=== PATIENT | female | born 1955 | race Caucasian/White ===

== ENCOUNTER → 2017-03-30 | Outpatient (CLI) | payer BC ==
--- NOTE | 2017-03-30 10:59 | USB ---
Addendum Report Previous report combined findings of both breasts, see correct findings. Right breast ultrasound includes all four quadrants, the retroareolar region and axilla. Finding demonstrates 0.1 x 0.1 x 0.1cm lesion too small to characterize at 4 o'clock and a 0.5 x 0.3 x 0.9cm cystic lesion at the nipple. Left breast ultrasound includes all four quadrants, the retroareolar region and axilla. Finding demonstrates a 1.4 x 0.2 x 1.0cm ductal lesion at 12 o'clock and a 2.3 x 0.2 x 0.7cm mixed, ductal lesion at 11 o'clock for which a biopsy is recommended. Reason for exam: clinical finding. History: Patient is postmenopausal. Excisional biopsy of the left breast, October 2006. Retro-pectoral saline implants in both breasts, 1999. Taking estrogen for 3 years beginning at age 50. Indicated problem(s): other indicated problem in both breasts. Physical Findings: Nurse Summary: occasional left pain a month ago, lasted 1 week, patient refuses to have mammogram "too painful" (nurse kp). US Breast BILAT Right breast ultrasound includes all four quadrants, the retroareolar region and axilla. Finding demonstrates 0.1 x 0.1 x 0.1cm lesion too small to characterize at 4 o'clock, a 0.5 x 0.3 x 0.9cm cystic lesion at the nipple, a 1.4 x 0.2 x 1.0cm ductal lesion at 12 o'clock and a 2.3 x 0.2 x 0.7cm mixed, ductal lesion at 11 o'clock for which a biopsy is recommended. These results were verbally communicated with the patient and result sheet given to the patient on 03/30/17. ASSESSMENT: Suspicious, BI-RAD 4 RECOMMENDATION: Ultrasound core biopsy of the left breast. Manage patient on a clinical basis. Called Dr. Grande with mammographic findings and has scheduled an appointment for the patient for 04/28/17 at 9:[address] Montero. PRELIMINARY REPORT CALLED AND FAXED TO DR. MONTERO ON 03/30/17 AT 300/TP. [facility]
== END | disposition home or self-care (01) ==
LOC: RADUSWWP 08:47
PROVIDERS: ATTEND Family Medicine
DX: Z12.39 Encounter for other screening for malignant neoplasm of breast (principal)

== ENCOUNTER → 2017-05-11 | Day surgery (SDC) | payer BC ==
--- NOTE | 2017-05-11 12:29 | MM ---
Reason for exam: additional evaluation requested from abnormal screening. Last mammogram was performed 6 years and 7 months ago. History: Patient is postmenopausal. Excisional biopsy of the left breast, October 2006. Retro-pectoral saline implants in both breasts, 1999. Taking estrogen for 3 years beginning at age 50. Physical Findings: Nurse Summary: 0.5-1cm nodule in the right breast at 11, 12 and 4 o'clock and a 1cm nodule in the left breast at 11 o'clock (nurse kp). MG Diag Mamm Implants MARKUS w CAD Bilateral CC, MLO, and ID view(s) were taken. Prior study comparison: September 27, 2010, bilateral diagnostic digital mammog. July 14, 2009, bilateral diagnostic digital mammog. The breast tissue is heterogeneously dense. This may lower the sensitivity of mammography. Finding: There are typically benign calcifications in both breasts. These results were verbally communicated with the patient and result sheet given to the patient on 05/11/17. ASSESSMENT: Incomplete: need additional imaging evaluation, BI-RAD 0 RECOMMENDATION: Ultrasound core biopsy of the left breast.
[2017-05-11 12:48] VITALS: RESP 16; BMI 29.2
[2017-05-11 13:22] VITALS: BP 111/68; PULSE 66; TEMP 98.2
--- NOTE | 2017-05-11 13:48 | USB ---
ULTRASOUND GUIDED FNA THYROID BIOPSY: CLINICAL HISTORY: Left breast 11:00 lesion requested for biopsy FINDINGS: The procedure was explained to the patient. The risks, complications, benefits and alternatives were discussed and any questions were answered. Informed consent was obtained. Patient was placed supin e on the ultrasound table and prepped and draped in the usual sterile fashion. Utilizing a 14 gauge needle, five passes were made into the requested left breast lesion. Clip placed post procedure whic h appeared in good position. Patient was stable throughout the procedure. Pathology is pending. All elements of maximal barrier and sterile technique were utilized. IMPRESSION: 1. Successful ultrasound guided core biopsy requested left breast lesion. Pathology pending.
== END ==
LOC: RADMAMWWP 10:33
PROVIDERS: ATTEND Surgery
DX: N60.32 Fibrosclerosis of left breast (principal); N60.42 Mammary duct ectasia of left breast; Z98.82 Breast implant status; R92.0 Mammographic microcalcification found on diagnostic imaging of breast; Z78.0 Asymptomatic menopausal state; Z79.899 Other long term (current) drug therapy
CPT/HCPCS: 88305; 19083; G0204; A4648

== ENCOUNTER → 2018-02-09 | Outpatient (CLI) | payer BC ==
--- NOTE | 2018-02-12 07:49 | MM ---
Reason for exam: follow-up at short interval from prior study. Last mammogram was performed 9 months ago. History: Patient is postmenopausal and has history of high-risk lesion on a previous biopsy at age 62. Family history of breast cancer in cousin. Lumpectomy of the left breast, June 14, 2017. High risk US breast needle core LT of the left breast, May 11, 2017. Excisional biopsy of the left breast, October 2006. Retro-pectoral saline implants in both breasts, 1999. Took estrogen for 7 years beginning at age 36. Physical Findings: A clinical breast exam by your physician is recommended on an annual basis and results should be correlated with mammographic findings. MG Diag Mamm Implants MARKUS w CAD Bilateral CC, MLO, and ID view(s) were taken. Prior study comparison: May 11, 2017, bilateral MG diag mamm implants MARKUS w CAD. September 27, 2010, bilateral diagnostic digital mammog. The breast tissue is heterogeneously dense. This may lower the sensitivity of mammography. Stable benign calcifications. Bilateral implants are intact. No significant new findings when compared with previous films. These results were verbally communicated with the patient and result sheet given to the patient on 02/09/18. ASSESSMENT: Benign, BI-RAD 2 RECOMMENDATION: Routine screening mammogram of both breasts in 1 year.
== END ==
LOC: RADMAMWWP 10:13
PROVIDERS: ATTEND Family Medicine
DX: R92.8 Other abnormal and inconclusive findings on diagnostic imaging of breast (principal)
CPT/HCPCS: 77066

== ENCOUNTER 2019-04-16 11:02 | Emergency (ER) | payer BC ==
--- NOTE | 2019-04-16 11:49 | XR ---
EXAMINATION TYPE: XR chest 2V DATE OF EXAM: 04/16/2019 COMPARISON: NONE HISTORY: Chest pain TECHNIQUE: Frontal and lateral views of the chest are obtained. FINDINGS: The patient is rotated, there are overlying cardiac leads. There is no focal air space opac ity, pleural effusion, or pneumothorax seen. The cardiac silhouette size is within normal limits. The osseous structures are intact. IMPRESSION: No acute cardiopulmonary process.
[2019-04-16 11:54] LABS: ALT 37 U/L (9-52); AST 27 U/L (14-36); Albumin 4.5 g/dL (3.5-5.0); Alkaline Phosphatase 70 U/L (38-126); Anion Gap 7 mmol/L; Blood Urea Nitrogen 13 mg/dL (7-17); Calcium 9.4 mg/dL (8.4-10.2); Carbon Dioxide 24 mmol/L (22-30); Chloride 109 mmol/L (98-107); Glucose 92 mg/dL (74-99); Lipase 87 U/L (23-300); Magnesium 2.1 mg/dL (1.6-2.3); Potassium 4.3 mmol/L (3.5-5.1); Sodium 140 mmol/L (137-145); Total Bilirubin 0.6 mg/dL (0.2-1.3); Total Protein 7.3 g/dL (6.3-8.2)
[2019-04-16 11:57] LABS: Basophils % (A) 0 %; Eosinophils # (A) 0.1 k/uL (0-0.7); Eosinophils % (A) 2 %; HGB 13.8 gm/dL (11.4-16.0); Lymphocytes # (A) 1.9 k/uL (1.0-4.8); Lymphocytes % (A) 35 %; MCH 30.1 pg (25.0-35.0); MCHC 32.8 g/dL (31.0-37.0); MCV 91.9 fL (80.0-100.0); Monocytes # (A) 0.5 k/uL (0-1.0); Monocytes % (A) 9 %; Neutrophils # (A) 2.7 k/uL (1.3-7.7); Neutrophils % (A) 51 %; Platelet Count 281 k/uL (150-450); RBC 4.57 m/uL (3.80-5.40); RDW 13.9 % (11.5-15.5); WBC 5.3 k/uL (3.8-10.6)
[2019-04-16 12:03] LABS: D-Dimer 0.42 mg/L FEU (<0.60); INR 0.9 (<1.2); Partial Thromboplastin Time 24.4 sec (22.0-30.0); Prothrombin Time 9.7 sec (9.0-12.0)
--- NOTE | 2019-04-16 12:36 | ED ---
Chest Pain HPI - General Chief Complaint: Chest Pain Stated Complaint: chest pain Time Seen by Provider: 04/16/19 11:14 Source: patient, RN notes reviewed, old records reviewed Mode of arrival: ambulatory Limitations: no limitations - History of Present Illness Initial Comments: This is a 64-year-old female the ER for evaluation. Presents today for sonya hernandez regards to chest pain right-sided chest pain right upper chest pain neck pain. No recent travel history or sick contacts. Patient states she has no modifying factors for pain pain is worse at night and throughout the day regarding symptoms times one week. No fevers no cough or congestion. No significant shortness of breath does feel anxious with the pain does present. MD Complaint: chest pain -: week(s) Onset: during rest, during exertion Pain Location: right chest Pain Radiation: RUE Severity: mild Severity scale (1-10): 2 Quality: aching Consistency: intermittent Improves With: nothing Worsens With: nothing Other Symptoms: cough Treatments Prior to Arrival: none - Related Data Home Medications Medication Instructions Recorded Confirmed Acetaminophen/Diphenhydramine 1 tab PO HS PRN 05/25/17 04/16/19 [Tylenol PM 500-25mg] [id number] 1 each PO Q6HR PRN 05/25/17 04/16/19 [Excedrin] [place] 650 mg PO HS 04/16/19 04/16/19 Aspirin 162.5 mg PO DAILY 04/16/19 04/16/19 Calcium Carbonate [Calcium] 1,200 mg PO HS 04/16/19 04/16/19 Cholecalciferol [Vitamin D3 (25 1,000 unit PO HS 04/16/19 04/16/19 Mcg = 1000 Iu)] Cider Vinegar [Apple Cider Vinegar] 300 mg PO DAILY 04/16/19 04/16/19 [place]-3 Fatty Acids [[place]-3] 2,000 mg PO HS 04/16/19 04/16/19 Papaya [Papaya Enzyme] 1 tab PO DAILY 04/16/19 04/16/19 Phytonadione [Vitamin K] 5 mg PO HS 04/16/19 04/16/19 Rosuvastatin [Crestor] 10 mg PO DAILY 04/16/19 04/16/19 Previous Rx's Medication Instructions Recorded Apixaban [Eliquis Starter Pack 0 mg PO DIRECTED 30 Days #1 pack 04/16/19 (for VTE)] Allergies Allergy/AdvReac Type Severity Reaction Status Date / Time lubiprostone [From Amitiza] Allergy Unknown Unknown Verified 04/16/19 11:30 Review of Systems ROS Statement: Those systems with pertinent positive or pertinent negative responses have been documented in the HPI. ROS Other: All systems not noted in ROS Statement are negative. EKG Findings - EKG Comments: EKG Findings:: EKG shows sinus rhythm rate of 67, IL 16, QRS 90, QTc 443 Past Medical History Past Medical History: GERD/Reflux, Hyperlipidemia, Osteoarthritis (OA), Seizure Disorder Additional Past Medical History / Comment(s): IBS, LAST SEIZURE AGE 3, VERY LOOSE STOOLS OFF AND ON History of Any Multi-Drug Resistant Organisms: None Reported Past Surgical History: Appendectomy, Bladder Surgery, Cholecystectomy, Hysterectomy, Orthopedic Surgery Additional Past Surgical History / Comment(s): BREAST IMPLANTS,MARKUS CATARACT SURGERY,BIOPSY LEFT BREAST,RECTOCELE REPAIR, Bladder susp. x 3, heel surgery Past Anesthesia/Blood Transfusion Reactions: Motion Sickness Past Psychological History: Depression Smoking Status: Never smoker Past Alcohol Use History: Occasional Past Drug Use History: None Reported - Past Family History Father Family Medical History: Cancer General Exam Limitations: no limitations General appearance: alert, in no apparent distress Head exam: Present: atraumatic, normocephalic, normal inspection Eye exam: Present: normal appearance, PERRL, EOMI. Absent: scleral icterus, conjunctival injection, periorbital swelling ENT exam: Present: normal exam, mucous membranes moist Neck exam: Present: normal inspection. Absent: tenderness, meningismus, lymphadenopathy Respiratory exam: Present: normal lung sounds bilaterally. Absent: respiratory distress, wheezes, rales, rhonchi, stridor Cardiovascular Exam: Present: regular rate, normal rhythm, normal heart sounds. Absent: systolic murmur, diastolic murmur, rubs, gallop, clicks GI/Abdominal exam: Present: soft, normal bowel sounds. Absent: distended, tenderness, guarding, rebound, rigid Extremities exam: Present: normal inspection, full ROM, normal capillary refill. Absent: tenderness, pedal edema, joint swelling, calf tenderness Back exam: Present: normal inspection Neurological exam: Present: alert, oriented X3, CN II-XII intact Psychiatric exam: Present: normal affect, normal mood Skin exam: Present: warm, dry, intact, normal color. Absent: rash Course Vital Signs 04/16/19 04/16/19 04/16/19 11:05 13:39 14:38 Temperature 97.8 F 97.8 F 98.3 F Pulse Rate 75 70 80 Respiratory 20 16 16 Rate Blood Pressure 138/83 114/76 106/64 O2 Sat by Pulse 98 97 94 L Oximetry - Reevaluation(s) Reevaluation #1: Medical records reviewed Spoke with patient, so with Dr. Morrow regarding admission or discharge. Patient deemed stable for discharge as she has normal vital signs normal pulse ox, normal troponin normal BNP Patient's in no acute distress Chest Pain MDM - MDM 64 female the ER for evaluation of right upper chest pain. Patient has no history of PE, pain times one week. Patient evaluated here in the ER. Patient's pain is controlled. Patient QRS for distress, able to ambulate without difficulty or shortness of breath. Patient place and anticoagulation can be discharged home Disposition Clinical Impression: Pulmonary embolism Disposition: HOME SELF-CARE Condition: Fair Instructions (If sedation given, give patient instructions): Pulmonary Embolism (ED) Prescriptions: Apixaban [Eliquis Starter Pack (for VTE)] 0 mg PO DIRECTED 30 Days #1 pack Is patient prescribed a controlled substance at d/c from ED?: No Referrals: Gucci Horton MD [Primary Care Provider] - 1-2 days
--- NOTE | 2019-04-16 13:00 | CT ---
EXAMINATION TYPE: CT angio chest DATE OF EXAM: 04/16/2019 12:35 PM COMPARISON: None HISTORY: Chest discomfort CT DLP: 330.7 mGycm Automated exposure control for dose reduction was used. CONTRAST: CTA scan of the thorax is performed with IV Contrast, patient injected with 100 mL of Isovue 300, pul monary embolism protocol. . FINDINGS: LUNGS: The lungs are grossly clear, there is no concerning parenchymal mass or nodule identified. T here is no pleural effusion or pneumothorax seen. The tracheobronchial tree is patent. MEDIASTINUM: There is central attenuation within upper lobe right pulmonary arterial branch. Main por tion of the pulmonary vasculature enhances normally., there is no CT evidence for pulmonary embolism. There are no greater than 1 cm hilar or mediastinal lymph nodes. No pericardial effusion is seen. Dense coronary artery calcification noted. OTHER: Postcholecystectomy changes. Previous breast implant surgery noted. IMPRESSION: 1. There is a filling defect within a right upper lobe secondary branch of the pulmonary artery. a sm all pulmonary embolism in this distribution is not excluded. Correlate clinically. 2. No consolidative pneumonia or pleural effusion.
[2019-04-16 13:42] VITALS: RESP 16
[2019-04-16] MEDS ORDERED: HEPARIN SODIUM,PORCINE 10,000 UNIT/ML 1 ML VIAL IV ONE (14:13)
[2019-04-16] MEDS ORDERED: NITROGLYCERIN SL TABS 0.4 MG TAB SUBLINGUAL PRN (14:13)
[2019-04-16] MEDS ORDERED: ASPIRIN 81 MG PO STA (14:13)
[2019-04-16] MEDS ORDERED: HEPARIN SODIUM,PORCINE 5,000 UNIT/ML 1 ML VIAL IV PRN (14:13)
[2019-04-16] MEDS ORDERED: HEPARIN SOD,PORK IN 0.45% NACL 25,000 UNIT in 0.45% NACL 1 250ML.BAG IV SCH (14:15)
[2019-04-16] MEDS ORDERED: APIXABAN 5 MG TAB PO STA (14:23)
[2019-04-16 14:41] VITALS: BP 106/64; PULSE 80; TEMP 98.3
[2019-04-17] MEDS ORDERED: ASPIRIN 325 MG TAB PO SCH (09:00)
== END 2019-04-16 14:54 | disposition home or self-care (01) ==
LOC: EC 11:02
DX: I26.99 Other pulmonary embolism without acute cor pulmonale (principal); M54.2 Cervicalgia; E78.5 Hyperlipidemia, unspecified; M19.90 Unspecified osteoarthritis, unspecified site; Z88.8 Allergy status to other drugs, medicaments and biological substances; Z79.82 Long term (current) use of aspirin; Z79.899 Other long term (current) drug therapy; Z53.8 Procedure and treatment not carried out for other reasons
CPT/HCPCS: 36415; 93005; 85379; 83880; 80053; 83690; 83735; 84484; 85025; 85610; 85730; 71046; 71275; 99285; Q9967

== ENCOUNTER → 2019-05-27 | Outpatient (CLI) | payer BC ==
--- NOTE | 2019-05-28 10:23 | MM ---
Reason for exam: screening (asymptomatic). Last mammogram was performed 1 year and 4 months ago. History: Patient is postmenopausal and has history of high-risk lesion on a previous biopsy at age 62. Family history of breast cancer in cousin. Lumpectomy of the left breast, June 14, 2017. High risk US breast needle core LT of the left breast, May 11, 2017. Excisional biopsy of the left breast, October 2006. Retro-pectoral saline implants in both breasts, 1999. Took estrogen for 7 years beginning at age 36. Physical Findings: A clinical breast exam by your physician is recommended on an annual basis and results should be correlated with mammographic findings. MG Screening Mammo Implant/CAD Bilateral CC, MLO, and ID view(s) were taken. Prior study comparison: February 09, 2018, bilateral MG diag mamm implants MARKUS w CAD. May 11, 2017, bilateral MG diag mamm implants MARKUS w CAD. The breast tissue is heterogeneously dense. This may lower the sensitivity of mammography. Benign appearing bilateral calcifications. ASSESSMENT: Benign, BI-RAD 2 RECOMMENDATION: Routine screening mammogram of both breasts in 1 year.
== END | disposition home or self-care (01) ==
LOC: RADMAMWWP 10:09
PROVIDERS: ATTEND Family Medicine
DX: Z12.31 Encounter for screening mammogram for malignant neoplasm of breast (principal)
CPT/HCPCS: 77067

== ENCOUNTER 2019-07-26 13:13 | Emergency (ER) | payer BC ==
[2019-07-26 13:22] VITALS: BP 117/65; PULSE 83; RESP 18; TEMP 97.9
[2019-07-26] MEDS ORDERED: DIPH,PERTUS(ACELL)TETVAC-LF 0.5 ML VIAL IM ONE (13:52)
[2019-07-26] MEDS ORDERED: LIDOCAINE 1% INJ 10MG/ML (20 ML MDV) SQ ONE (13:52)
--- NOTE | 2019-07-26 14:59 | ED ---
General Adult HPI - General Chief complaint: Skin/Abscess/Foreign Body Stated complaint: Sliver in neck Time Seen by Provider: 07/26/19 13:47 Source: patient, RN notes reviewed Mode of arrival: ambulatory - History of Present Illness Initial comments: 64-year-old female presents to the emergency department for a chief complaint of sliver in her neck. Patient was sleeping with a broom yesterday when it hit her neck and she got a sliver. States that she tried to go to urgent care to get it out but they would not take it out because she is on Eliquis. No redness. No drainage. No signs of infection.Patient has no other complaints at this time including shortness of breath, chest pain, abdominal pain, nausea or vomiting, headache, or visual changes. - Related Data Home Medications Medication Instructions Recorded Confirmed Acetaminophen/Diphenhydramine 1 tab PO HS PRN 05/25/17 04/16/19 [Tylenol PM 500-25mg] [id number] 1 each PO Q6HR PRN 05/25/17 04/16/19 [Excedrin] [place] 650 mg PO HS 04/16/19 04/16/19 Aspirin 162.5 mg PO DAILY 04/16/19 04/16/19 Calcium Carbonate [Calcium] 1,200 mg PO HS 04/16/19 04/16/19 Cholecalciferol [Vitamin D3 (25 1,000 unit PO HS 04/16/19 04/16/19 Mcg = 1000 Iu)] Cider Vinegar [Apple Cider Vinegar] 300 mg PO DAILY 04/16/19 04/16/19 [place]-3 Fatty Acids [[place]-3] 2,000 mg PO HS 04/16/19 04/16/19 Papaya [Papaya Enzyme] 1 tab PO DAILY 04/16/19 04/16/19 Phytonadione [Vitamin K] 5 mg PO HS 04/16/19 04/16/19 Rosuvastatin [Crestor] 10 mg PO DAILY 04/16/19 04/16/19 Previous Rx's Medication Instructions Recorded Apixaban [Eliquis Starter Pack 0 mg PO DIRECTED 30 Days #1 pack 04/16/19 (for VTE)] Allergies Allergy/AdvReac Type Severity Reaction Status Date / Time lubiprostone [From Amitiza] Allergy Unknown Unknown Verified 07/26/19 13:22 Review of Systems ROS Statement: Those systems with pertinent positive or pertinent negative responses have been documented in the HPI. ROS Other: All systems not noted in ROS Statement are negative. Past Medical History Past Medical History: GERD/Reflux, Hyperlipidemia, Osteoarthritis (OA), Pulmonary Embolus (PE), Seizure Disorder Additional Past Medical History / Comment(s): IBS, LAST SEIZURE AGE 3, VERY LOOSE STOOLS OFF AND ON History of Any Multi-Drug Resistant Organisms: None Reported Past Surgical History: Appendectomy, Bladder Surgery, Cholecystectomy, Hysterectomy, Orthopedic Surgery Additional Past Surgical History / Comment(s): BREAST IMPLANTS,MARKUS CATARACT SURGERY,BIOPSY LEFT BREAST,RECTOCELE REPAIR, Bladder susp. x 3, heel surgery Past Anesthesia/Blood Transfusion Reactions: Motion Sickness Past Psychological History: Depression Smoking Status: Never smoker Past Alcohol Use History: Occasional Past Drug Use History: None Reported - Past Family History Father Family Medical History: Cancer General Exam General appearance: alert, in no apparent distress Head exam: Present: atraumatic, normocephalic, normal inspection Eye exam: Present: normal appearance, PERRL, EOMI. Absent: scleral icterus, conjunctival injection, periorbital swelling ENT exam: Present: normal exam, mucous membranes moist Neck exam: Present: other (There is a small less than 0.5 cm thin sliver noted in the superficial right neck. No erythema or drainage consistent with infection.). Absent: normal inspection, tenderness, meningismus, lymphadenopathy Respiratory exam: Present: normal lung sounds bilaterally. Absent: respiratory distress, wheezes, rales, rhonchi, stridor Cardiovascular Exam: Present: regular rate, normal rhythm, normal heart sounds. Absent: systolic murmur, diastolic murmur, rubs, gallop, clicks Neurological exam: Present: alert Psychiatric exam: Present: normal affect, normal mood Course Vital Signs 07/26/19 13:19 Temperature 97.9 F Pulse Rate 83 Respiratory 18 Rate Blood Pressure 117/65 O2 Sat by Pulse 97 Oximetry Medical Decision Making - Medical Decision Making 64-year-old female presents to the emergency department for a chief complaint of superficial soft tissue foreign body. Patient was sleeping with a broom yesterday when she got a sliver in her neck. States she tried to go to urgent care but they would not remove this because she is on blood thinners. On exam there is a small superficial 0.5 cm wooden sliver noted. Tetanus updated. Area was cleansed. Lidocaine was used to anesthetize the area and 18-gauge needle was used to excise the sliver. No evidence of infection. At this time patient will not be given antibiotics but will monitor for infection. She will return here. Otherwise she'll follow up with primary care for recheck in one to 2 days. Disposition Clinical Impression: Superficial foreign body (splinter) Disposition: HOME SELF-CARE Condition: Good Instructions (If sedation given, give patient instructions): Soft Tissue Foreign Body (ED) Additional Instructions: Please keep the area clean. Monitor for signs of infection such as spreading or streaking redness, drainage, or fever and return if these occur. Otherwise follow-up with primary care in 1-2 days. Is patient prescribed a controlled substance at d/c from ED?: No Referrals: Gucci Horton MD [Primary Care Provider] - 1-2 days Time of Disposition: 14:58
== END 2019-07-26 15:07 | disposition home or self-care (01) ==
LOC: EC 13:13
DX: S10.95XA Superficial foreign body of unspecified part of neck, initial encounter (principal); Z23 Encounter for immunization; E78.5 Hyperlipidemia, unspecified; Z79.82 Long term (current) use of aspirin; Z79.899 Other long term (current) drug therapy; Z88.8 Allergy status to other drugs, medicaments and biological substances; Z86.711 Personal history of pulmonary embolism; W45.8XXA Other foreign body or object entering through skin, initial encounter
CPT/HCPCS: 90715; 99283; 10120; 90471; J2001

== ENCOUNTER → 2020-01-14 | Outpatient (CLI) | payer BC ==
[2020-01-14 12:30] LABS: Basophils % (A) 0 %; Eosinophils # (A) 0.1 k/uL (0-0.7); Eosinophils % (A) 1 %; HGB 14.2 gm/dL (11.4-16.0); Lymphocytes % (A) 29 %; MCH 29.8 pg (25.0-35.0); MCHC 31.5 g/dL (31.0-37.0); MCV 94.7 fL (80.0-100.0); Mean Platelet Volume 7.2; Monocytes # (A) 0.7 k/uL (0-1.0); Monocytes % (A) 10 %; Neutrophils # (A) 4.1 k/uL (1.3-7.7); Neutrophils % (A) 58 %; Platelet Count 269 k/uL (150-450); RBC 4.75 m/uL (3.80-5.40); RDW 12.8 % (11.5-15.5); WBC 7.1 k/uL (3.8-10.6)
[2020-01-14 16:47] LABS: African American GFR (CKD) 106.1 (60.0-200.0); Albumin 4.8 g/dL (3.80-4.90); Albumin/Globulin Ratio 2.53 (1.60-3.17); Anion Gap 8.8 mmol/L (4.00-12.00); BUN/Creat Ratio 21.43 Ratio (12.00-20.00); Calcium 9.4 mg/dL (8.7-10.3); Carbon Dioxide 26.2 mmol/L (21.6-31.8); Chol/HDL Ratio 2.67; Globulin 1.9 g/dL (1.6-3.3); LDL Cholesterol,Calculated 74.6 mg/dL (0.0-131.0); Non-African American GFR(CKD) 91.6 (60.0-200.0); Potassium 5.2 mmol/L (3.5-5.5); Total Bilirubin 0.6 mg/dL (0.3-1.2); Total Protein 6.7 g/dL (6.2-8.2); VLDL Calculation 25.4 mg/dL (5.00-40.00)
== END | disposition home or self-care (01) ==
LOC: LABWHC1 10:35
PROVIDERS: ATTEND Family Medicine
DX: Z00.01 Encounter for general adult medical examination with abnormal findings (principal); E78.5 Hyperlipidemia, unspecified; E55.9 Vitamin D deficiency, unspecified
CPT/HCPCS: 36415; 80053; 80061; 82306; 82607; 84443; 85025

== ENCOUNTER → 2020-06-01 | Outpatient (CLI) | payer MEDICARE ==
--- NOTE | 2020-06-03 13:27 | MM ---
Reason for exam: screening (asymptomatic). Last mammogram was performed 1 year ago. History: Patient is postmenopausal and has history of high-risk lesion on a previous biopsy at age 62. Family history of breast cancer in cousin. Lumpectomy of the left breast, June 14, 2017. High risk US breast needle core LT of the left breast, May 11, 2017. Excisional biopsy of the left breast, October 2006. Retro-pectoral saline implants in both breasts, 1999. Took estrogen for 7 years beginning at age 36. Physical Findings: A clinical breast exam by your physician is recommended on an annual basis and results should be correlated with mammographic findings. MG 3D Screen Mammo Imp/Cad Bilateral CC and MLO view(s) were taken. Prior study comparison: May 27, 2019, bilateral MG screening mammo implant/CAD. February 09, 2018, bilateral MG diag mamm implants MARKUS w CAD. The breast tissue is heterogeneously dense. This may lower the sensitivity of mammography. Bilateral breast prothesis. No significant changes when compared with prior studies. ASSESSMENT: Benign, BI-RAD 2 RECOMMENDATION: Routine screening mammogram of both breasts in 1 year.
== END | disposition home or self-care (01) ==
LOC: RADMAMWWP 10:44
PROVIDERS: ATTEND Family Medicine
DX: Z12.31 Encounter for screening mammogram for malignant neoplasm of breast (principal)
CPT/HCPCS: 77063; 77067

== ENCOUNTER 2021-03-07 19:12 | Emergency (ER) | payer MEDICARE ==
[2021-03-07] MEDS ORDERED: SODIUM CHLORIDE 0.9% 500 ML 500 ML IV STA (21:24)
--- NOTE | 2021-03-07 22:05 | ED ---
General Adult HPI - General Chief complaint: Recheck/Abnormal Lab/Rx Stated complaint: Covid exposure, weakness Time Seen by Provider: 03/07/21 21:24 Source: patient Mode of arrival: wheelchair Limitations: no limitations - History of Present Illness Initial comments: 65-year-old female patient presents to the emergency department today for evaluation after having an episode where she became very dizzy and weak. States she is also very diaphoretic at the time. States she had sweat dripping down her face. States that she continued to feel unwell slid decided to come and get checked out. States that the episode lasted for approximately 20 minutes and she started to feel better. States she still does have some residual generalized weakness. Denies any chest pain or shortness of breath with the episode. Denies any history of hypoglycemia. Denies any focal numbness, tingling, or weakness. Denies any recent fever or chills. She was concerned she may have COVID-19. Patient denies any recent rash, cough, abdominal pain, nausea, vomiting, diarrhea, constipation, back pain, hematuria, dysuria, urinary urgency, urinary frequency, headache, visual changes, or any other complaints. - Related Data Home Medications Medication Instructions Recorded Confirmed Acetaminophen/Diphenhydramine 1 tab PO HS PRN 05/25/17 04/16/19 [Tylenol PM 500-25mg] [id number] 1 each PO Q6HR PRN 05/25/17 04/16/19 [Excedrin] Calcium Carbonate [Calcium] 1,200 mg PO HS 04/16/19 04/16/19 Cholecalciferol [Vitamin D3 (25 1,000 unit PO HS 04/16/19 04/16/19 Mcg = 1000 Iu)] Cider Vinegar [Apple Cider Vinegar] 300 mg PO DAILY 04/16/19 04/16/19 [place]-3 Fatty Acids [[place]-3] 2,000 mg PO HS 04/16/19 04/16/19 Papaya [Papaya Enzyme] 1 tab PO DAILY 04/16/19 04/16/19 Phytonadione [Vitamin K] 5 mg PO HS 04/16/19 04/16/19 RX: Catron 650 mg PO HS 04/16/19 04/16/19 RX: Aspirin 162.5 mg PO DAILY 04/16/19 04/16/19 Rosuvastatin [Crestor] 10 mg PO DAILY 04/16/19 04/16/19 Previous Rx's Medication Instructions Recorded Apixaban [Eliquis Starter Pack 0 mg PO DIRECTED 30 Days #1 pack 04/16/19 (for VTE)] Fluconazole [Diflucan] 150 mg PO ONCE #2 tab 03/07/21 Nitrofurantoin Monohyd/M-Cryst 100 mg PO Q12HR #14 cap 03/07/21 [Macrobid] Allergies Allergy/AdvReac Type Severity Reaction Status Date / Time lubiprostone [From Amitiza] Allergy Unknown Unknown Verified 07/26/19 13:22 Review of Systems ROS Statement: Those systems with pertinent positive or pertinent negative responses have been documented in the HPI. ROS Other: All systems not noted in ROS Statement are negative. Past Medical History Past Medical History: CVA/TIA, GERD/Reflux, Hyperlipidemia, Osteoarthritis (OA), Pulmonary Embolus (PE), Seizure Disorder Additional Past Medical History / Comment(s): IBS, LAST SEIZURE AGE 3, VERY LOOSE STOOLS OFF AND ON History of Any Multi-Drug Resistant Organisms: None Reported Past Surgical History: Appendectomy, Bladder Surgery, Cholecystectomy, Hysterectomy, Orthopedic Surgery Additional Past Surgical History / Comment(s): BREAST IMPLANTS,MARKUS CATARACT SURGERY,BIOPSY LEFT BREAST,RECTOCELE REPAIR, Bladder susp. x 3, heel surgery Past Anesthesia/Blood Transfusion Reactions: Motion Sickness Past Psychological History: Depression Smoking Status: Never smoker Past Alcohol Use History: Occasional Past Drug Use History: None Reported - Past Family History Father Family Medical History: Cancer General Exam Limitations: no limitations General appearance: alert, in no apparent distress, other (Physical well- developed, well-nourished adult female patient in no acute distress. Vital signs upon presentation are temperature 97.5F, pulse 72, respirations 20, blood pressure 137/79, pulse ox 100% on room air.) Eye exam: Present: normal appearance, PERRL, EOMI. Absent: scleral icterus, conjunctival injection, periorbital swelling ENT exam: Present: normal exam, normal oropharynx, mucous membranes moist Respiratory exam: Present: normal lung sounds bilaterally. Absent: respiratory distress, wheezes, rales, rhonchi, stridor Cardiovascular Exam: Present: regular rate, normal rhythm, normal heart sounds. Absent: systolic murmur, diastolic murmur, rubs, gallop, clicks GI/Abdominal exam: Present: soft, normal bowel sounds. Absent: distended, tenderness, guarding, rebound, rigid Neurological exam: Present: alert, oriented X3, CN II-XII intact Psychiatric exam: Present: normal affect, normal mood Skin exam: Present: warm, dry, intact, normal color. Absent: rash Course Vital Signs 03/07/21 03/08/21 19:53 00:16 Temperature 97.5 F L 97.7 F Pulse Rate 72 69 Respiratory 20 18 Rate Blood Pressure 137/79 125/82 O2 Sat by Pulse 100 96 Oximetry EKG Findings - EKG Comments: EKG Findings:: EKG obtained at 2145 shows normal sinus rhythm with a ventricular rate of 66, OK 172, QR sikh 88, QT 436, QTc 457. No evidence of ST elevation or depression. Medical Decision Making - Medical Decision Making 65 old female patient percents to the emergency department today for evaluation after having an episode of dizziness, weakness, sweating. This lasted approximately 20 minutes. Symptoms resolved prior to arrival. Tested negative for COVID-19. Physical examination is unremarkable. She is neurologically intact and nonfocal deficits. Labs reviewed and were unremarkable. She did have evidence for urinary tract infection. Chest x-ray is negative. EKG is unremarkable. She'll be discharged with antibiotics for UTI. She states instructed to rest increase fluids. Instructed to follow-up with the primary care physician for recheck in 1-2 days. Return parameters discussed in detail. She verbalizes understanding and agrees with this plan. Case discussed with my attending Dr. Johnson. - Lab Data Result diagrams: 03/07/21 22:10 03/07/21 22:10 Lab Results 03/07/21 03/07/21 03/07/21 Range/Units 19:59 22:10 22:10 WBC 10.0 (3.8-10.6) k/uL RBC 4.48 (3.80-5.40) m/uL Hgb 14.1 (11.4-16.0) gm/dL Hct 40.9 (34.0-46.0) % MCV 91.4 (80.0-100.0) fL MCH 31.5 (25.0-35.0) pg MCHC 34.4 (31.0-37.0) g/dL RDW 12.8 (11.5-15.5) % Plt Count 266 (150-450) k/uL MPV 6.9 Neutrophils % 72 % Lymphocytes % 20 % Monocytes % 6 % Eosinophils % 1 % Basophils % 0 % Neutrophils # 7.1 (1.3-7.7) k/uL Lymphocytes # 2.0 (1.0-4.8) k/uL Monocytes # 0.6 (0-1.0) k/uL Eosinophils # 0.1 (0-0.7) k/uL Basophils # 0.0 (0-0.2) k/uL PT 9.7 (9.0-12.0) sec INR 0.9 (<1.2) APTT 22.8 (22.0-30.0) sec Sodium (137-145) mmol/L Potassium (3.5-5.1) mmol/L Chloride (98-107) mmol/L Carbon Dioxide (22-30) mmol/L Anion Gap mmol/L BUN (7-17) mg/dL Creatinine (0.52-1.04) mg/dL Est GFR (CKD-EPI)AfAm (>60 ml/min/1.73 sqM) Est GFR (CKD-EPI)NonAf (>60 ml/min/1.73 sqM) Glucose (74-99) mg/dL Plasma Lactic Acid Kike (0.7-2.0) mmol/L Calcium (8.4-10.2) mg/dL Total Bilirubin (0.2-1.3) mg/dL AST (14-36) U/L ALT (4-34) U/L Alkaline Phosphatase (38-126) U/L Troponin I (0.000-0.034) ng/mL Total Protein (6.3-8.2) g/dL Albumin (3.5-5.0) g/dL Urine Color Urine Appearance (Clear) Urine pH (5.0-8.0) Ur Specific [place] (1.001-1.035) Urine Protein (Negative) Urine Glucose (UA) (Negative) Urine Ketones (Negative) Urine Blood (Negative) Urine Nitrite (Negative) Urine Bilirubin (Negative) Urine Urobilinogen (<2.0) mg/dL Ur Leukocyte Esterase (Negative) Urine RBC (0-5) /hpf Urine WBC (0-5) /hpf Ur Squamous Epith Cells (0-4) /hpf Urine Bacteria (None) /hpf Hyaline Casts (0-2) /lpf Urine Mucus (None) /hpf Coronavirus (PCR) Not Detected (Not Detectd) 03/07/21 03/07/21 03/07/21 Range/Units 22:10 22:10 22:10 WBC (3.8-10.6) k/uL RBC (3.80-5.40) m/uL Hgb (11.4-16.0) gm/dL Hct (34.0-46.0) % MCV (80.0-100.0) fL MCH (25.0-35.0) pg MCHC (31.0-37.0) g/dL RDW (11.5-15.5) % Plt Count (150-450) k/uL MPV Neutrophils % % Lymphocytes % % Monocytes % % Eosinophils % % Basophils % % Neutrophils # (1.3-7.7) k/uL Lymphocytes # (1.0-4.8) k/uL Monocytes # (0-1.0) k/uL Eosinophils # (0-0.7) k/uL Basophils # (0-0.2) k/uL PT (9.0-12.0) sec INR (<1.2) APTT (22.0-30.0) sec Sodium 140 (137-145) mmol/L Potassium 4.3 (3.5-5.1) mmol/L Chloride 107 (98-107) mmol/L Carbon Dioxide 22 (22-30) mmol/L Anion Gap 11 mmol/L BUN 17 (7-17) mg/dL Creatinine 0.59 (0.52-1.04) mg/dL Est GFR (CKD-EPI)AfAm >90 (>60 ml/min/1.73 sqM) Est GFR (CKD-EPI)NonAf >90 (>60 ml/min/1.73 sqM) Glucose 99 (74-99) mg/dL Plasma Lactic Acid Kike 0.9 (0.7-2.0) mmol/L Calcium 9.2 (8.4-10.2) mg/dL Total Bilirubin 0.6 (0.2-1.3) mg/dL AST 32 (14-36) U/L ALT 36 H (4-34) U/L Alkaline Phosphatase 80 (38-126) U/L Troponin I <0.012 (0.000-0.034) ng/mL Total Protein 7.3 (6.3-8.2) g/dL Albumin 4.4 (3.5-5.0) g/dL Urine Color Urine Appearance (Clear) Urine pH (5.0-8.0) Ur Specific [place] (1.001-1.035) Urine Protein (Negative) Urine Glucose (UA) (Negative) Urine Ketones (Negative) Urine Blood (Negative) Urine Nitrite (Negative) Urine Bilirubin (Negative) Urine Urobilinogen (<2.0) mg/dL Ur Leukocyte Esterase (Negative) Urine RBC (0-5) /hpf Urine WBC (0-5) /hpf Ur Squamous Epith Cells (0-4) /hpf Urine Bacteria (None) /hpf Hyaline Casts (0-2) /lpf Urine Mucus (None) /hpf Coronavirus (PCR) (Not Detectd) 03/07/21 Range/Units 22:18 WBC (3.8-10.6) k/uL RBC (3.80-5.40) m/uL Hgb (11.4-16.0) gm/dL Hct (34.0-46.0) % MCV (80.0-100.0) fL MCH (25.0-35.0) pg MCHC (31.0-37.0) g/dL RDW (11.5-15.5) % Plt Count (150-450) k/uL MPV Neutrophils % % Lymphocytes % % Monocytes % % Eosinophils % % Basophils % % Neutrophils # (1.3-7.7) k/uL Lymphocytes # (1.0-4.8) k/uL Monocytes # (0-1.0) k/uL Eosinophils # (0-0.7) k/uL Basophils # (0-0.2) k/uL PT (9.0-12.0) sec INR (<1.2) APTT (22.0-30.0) sec Sodium (137-145) mmol/L Potassium (3.5-5.1) mmol/L Chloride (98-107) mmol/L Carbon Dioxide (22-30) mmol/L Anion Gap mmol/L BUN (7-17) mg/dL Creatinine (0.52-1.04) mg/dL Est GFR (CKD-EPI)AfAm (>60 ml/min/1.73 sqM) Est GFR (CKD-EPI)NonAf (>60 ml/min/1.73 sqM) Glucose (74-99) mg/dL Plasma Lactic Acid Kike (0.7-2.0) mmol/L Calcium (8.4-10.2) mg/dL Total Bilirubin (0.2-1.3) mg/dL AST (14-36) U/L ALT (4-34) U/L Alkaline Phosphatase (38-126) U/L Troponin I (0.000-0.034) ng/mL Total Protein (6.3-8.2) g/dL Albumin (3.5-5.0) g/dL Urine Color Yellow Urine Appearance Cloudy H (Clear) Urine pH 5.5 (5.0-8.0) Ur Specific [place] 1.020 (1.001-1.035) Urine Protein Negative (Negative) Urine Glucose (UA) Negative (Negative) Urine Ketones 1+ H (Negative) Urine Blood Negative (Negative) Urine Nitrite Negative (Negative) Urine Bilirubin Negative (Negative) Urine Urobilinogen <2.0 (<2.0) mg/dL Ur Leukocyte Esterase Moderate H (Negative) Urine RBC 1 (0-5) /hpf Urine WBC 36 H (0-5) /hpf Ur Squamous Epith Cells 1 (0-4) /hpf Urine Bacteria Many H (None) /hpf Hyaline Casts 1 (0-2) /lpf Urine Mucus Occasional H (None) /hpf Coronavirus (PCR) (Not Detectd) - EKG Data -: EKG Interpreted by Me EKG Comments: EKG obtained at 2145 shows sinus rhythm with a ventricular rate of 66, OK interval 172, QRS duration 88, QT 436, QTc 457. No evidence of ST elevation or depression. - Radiology Data Radiology results: report reviewed, image reviewed Two-view x-ray of the chest is obtained. Report reviewed in its entirety. Impression by Dr. Anderson shows no acute cardiopulmonary abnormality. Disposition Clinical Impression: Urinary tract infection, Weakness Disposition: HOME SELF-CARE Condition: Good Instructions (If sedation given, give patient instructions): Urinary Tract Infection in Women (ED), Weakness (ED) Additional Instructions: Increase fluids. Complete antibiotic prescription and full. Follow-up the primary care physician for recheck in 1-2 days. Return to the emergency department for any new, worsening, or concerning symptoms Prescriptions: Fluconazole [Diflucan] 150 mg PO ONCE #2 tab Nitrofurantoin Monohyd/M-Cryst [Macrobid] 100 mg PO Q12HR #14 cap Is patient prescribed a controlled substance at d/c from ED?: No Referrals: Gucci Hortno MD [Primary Care Provider] - 1-2 days Time of Disposition: 23:38
--- NOTE | 2021-03-07 22:11 | XR ---
EXAMINATION TYPE: XR chest 2V DATE OF EXAM: 03/07/2021 COMPARISON: CT 04/16/2019. HISTORY: Weakness. TECHNIQUE: Frontal and lateral views of the chest are obtained. FINDINGS: There is mild bibasilar hazy opacities, compatible with atelectasis. No significant infilt rate, pleural effusion, or pneumothorax seen. The cardiac silhouette size is within normal limits. The osseous structures are intact. Overlying loop recorder is seen. IMPRESSION: No acute cardiopulmonary abnormality.
[2021-03-07 22:23] LABS: Basophils % (A) 0 %; Eosinophils # (A) 0.1 k/uL (0-0.7); Eosinophils % (A) 1 %; HCT 40.9 % (34.0-46.0); HGB 14.1 gm/dL (11.4-16.0); Lymphocytes % (A) 20 %; MCH 31.5 pg (25.0-35.0); MCHC 34.4 g/dL (31.0-37.0); MCV 91.4 fL (80.0-100.0); Mean Platelet Volume 6.9; Monocytes # (A) 0.6 k/uL (0-1.0); Monocytes % (A) 6 %; Neutrophils # (A) 7.1 k/uL (1.3-7.7); Neutrophils % (A) 72 %; Platelet Count 266 k/uL (150-450); RBC 4.48 m/uL (3.80-5.40); RDW 12.8 % (11.5-15.5)
[2021-03-07 22:32] LABS: INR 0.9 (<1.2); Partial Thromboplastin Time 22.8 sec (22.0-30.0); Prothrombin Time 9.7 sec (9.0-12.0)
[2021-03-07 22:42] LABS: ALT 36 U/L (4-34); AST 32 U/L (14-36); African American GFR (CKD) >90 (>60 ml/min/1.73 sqM); Albumin 4.4 g/dL (3.5-5.0); Alkaline Phosphatase 80 U/L (38-126); Anion Gap 11 mmol/L; Blood Urea Nitrogen 17 mg/dL (7-17); Calcium 9.2 mg/dL (8.4-10.2); Carbon Dioxide 22 mmol/L (22-30); Chloride 107 mmol/L (98-107); Glucose 99 mg/dL (74-99); Non-African American GFR(CKD) >90 (>60 ml/min/1.73 sqM); Potassium 4.3 mmol/L (3.5-5.1); Sodium 140 mmol/L (137-145); Total Bilirubin 0.6 mg/dL (0.2-1.3); Total Protein 7.3 g/dL (6.3-8.2)
[2021-03-07 22:48] LABS: Appearance,Urine Cloudy (Clear); Bacteria,Urine Many /hpf; Bilirubin,Urine Negative (Negative); Blood,Urine Negative (Negative); Color,Urine Yellow; Glucose,Urine (UA) Negative (Negative); Hyaline Casts,Urine 1 /lpf (0-2); Ketones,Urine 1+ (Negative); Leukocyte Esterase,Urine Moderate (Negative); Mucus,Urine Occasional /hpf; Nitrite,Urine Negative (Negative); PH, Urine 5.5 (5.0-8.0); Protein,Urine Negative (Negative); RBC,Urine 1 /hpf (0-5); Squamous Epithelial Cell,Urine 1 /hpf (0-4); Urobilinogen,Urine <2.0 mg/dL (<2.0); WBC,Urine 36 /hpf (0-5)
[2021-03-07] MEDS ORDERED: cefTRIAXone IN SWFI 1,000 MG/10 ML SYRINGE IVP STA (23:22)
[2021-03-08 00:17] VITALS: BP 125/82; PULSE 69; RESP 18; TEMP 97.7
== END 2021-03-08 00:17 | disposition home or self-care (01) ==
LOC: EC 19:12 → SUPCPDRO 19:12 → EC 03-08 00:17
DX: N39.0 Urinary tract infection, site not specified (principal); R53.1 Weakness; E78.5 Hyperlipidemia, unspecified; K21.9 Gastro-esophageal reflux disease without esophagitis; M19.90 Unspecified osteoarthritis, unspecified site; Z20.822 Contact with and (suspected) exposure to COVID-19; F32.9 Major depressive disorder, single episode, unspecified; Z86.73 Personal history of transient ischemic attack (TIA), and cerebral infarction without residual deficits; Z86.711 Personal history of pulmonary embolism; Z79.82 Long term (current) use of aspirin
CPT/HCPCS: 36415; 80053; 83605; 84484; 85025; 85610; 85730; 81001; 87086; 87635; 71046; 99285; 96374; 96361; J0696; 87077; 87186; 93005

== ENCOUNTER → 2021-09-21 | Outpatient (CLI) | payer MEDICARE ==
--- NOTE | 2021-09-22 16:13 | BD ---
EXAMINATION TYPE: Axial Bone Density DATE OF EXAM: 09/21/2021 COMPARISON: NONE CLINICAL HISTORY: Height: 5 FT 3 IN Weight: 172 FRAX RISK QUESTIONS: Alcohol (3 or more units per day): NO Family History (Parent hip fracture): NO Glucocorticoids (More than 3mos): NO (Ex: prednisone, prednisolone, methylprednisolone, dexamethasone, and hydrocortisone). History of Fracture in Adulthood: YES Secondary Osteoporosis: 1. Type 1 Diabetes: NO 2. Hyperthyroidism: NO 3. Menopause before 45: PART AGE 36 4. Malnutrition: NO 5. Chronic liver disease: NO Rheumatoid Arthritis: NO Current Tobacco Use: NO RISK FACTORS HISTORY OF: Surgery to Spine/Hip(right/left)/Wrist (right/left): NO Family History of Osteoporosis: YES Active: YES Diet low in dairy products/other sources of calcium: NO Postmenopausal woman: PART AGE 36 Take estrogen and/or progesterone medications: TOOK HRT UNSURE FOR HOW LONG Lost more than 2 inches in height since high school: NO MEDICATIONS: Additional Medications: ROSUVASTATIN, ASPIRIN Additional History: EXAM MEASUREMENTS: Bone mineral densitometry was performed using the [employer] System. Bone mineral density as measured about the Lumbar spine is: ----- L1-L4(G/cm2): 1.141 T Score Values are as follows: ----- L2: 0.4 ----- L3: -0.7 ----- L4: 0.2 ----- L1-L4: -0.3 Bone mineral density has: INCREASED 9.9 % since study of: 2008 Bone mineral density about the R hip (g/cm2): 0.933 Bone mineral density about the L hip (g/cm2): 0.877 T Score values are as follows: -----R Neck: -0.8 -----L Neck: -1.2 -----R Total: -0.8 -----L Total: -1.2 Bone mineral density has: INCREASED 4.6 % since study of: 2008 IMPRESSION: Normal (Values between +1 and -1 indicate normal bone mass). Consider repeating this study in 5 year s or sooner if there is some new clinical indication. NOTE: T-SCORE=SD OF THE YOUNG ADULT MEAN.
--- NOTE | 2021-09-23 10:27 | MM ---
Reason for exam: screening (asymptomatic). Last mammogram was performed 1 year and 4 months ago. History: Patient is postmenopausal and has history of high-risk lesion on a previous biopsy at age 62. Family history of breast cancer in cousin. Lumpectomy of the left breast, June 14, 2017. High risk US breast needle core LT of the left breast, May 11, 2017. Excisional biopsy of the left breast, October 2006. Retro-pectoral saline implants in both breasts, 1999. Took estrogen for 7 years beginning at age 36. Physical Findings: A clinical breast exam by your physician is recommended on an annual basis and results should be correlated with mammographic findings. MG 3D Screen Mammo Imp/Cad Bilateral CC, MLO, and ID view(s) were taken. Prior study comparison: June 01, 2020, bilateral MG 3d screen mammo imp/cad. May 27, 2019, bilateral MG screening mammo implant/CAD. There are scattered fibroglandular densities. Bilateral breast prothesis. No significant changes when compared with prior studies. ASSESSMENT: Benign, BI-RAD 2 RECOMMENDATION: Routine screening mammogram of both breasts in 1 year.
== END | disposition home or self-care (01) ==
LOC: RADMAMWWP 14:53
PROVIDERS: ATTEND Family Medicine
DX: Z12.31 Encounter for screening mammogram for malignant neoplasm of breast (principal); Z78.0 Asymptomatic menopausal state
CPT/HCPCS: 77063; 77067; 77080

== ENCOUNTER → 2022-05-23 | Outpatient (CLI) | payer MEDICARE ==
--- NOTE | 2022-05-23 15:51 | NM ---
EXAMINATION TYPE: NM pul vent and perfuse DATE OF EXAM: 05/23/2022 COMPARISON: NONE HISTORY: Pulmonary embolism TECHNIQUE: Utilizing inhalation of 30.2 mCi Tc 99m DTPA aerosol and intravenous injection of 5.2 mCi of Tc 99m MAA, ventilation and perfusion images are acquired post injection in multiple projections. FINDINGS: No moderate or large defects or within the perfusion portion study. No mismatch defects are evident. IMPRESSION: Low probability for pulmonary embolism.
== END | disposition home or self-care (01) ==
LOC: RADNMMAIN 12:58
PROVIDERS: ATTEND Internal Medicine Cardiovascular Disease
DX: I26.99 Other pulmonary embolism without acute cor pulmonale (principal)
CPT/HCPCS: 78582; A9540; A9567

== ENCOUNTER 2022-10-06 09:58 | Inpatient (IN) | payer MEDICARE ==
[2022-10-06] MEDS ORDERED: SODIUM CHLORIDE 0.9% 1,000 ML IV STA (10:44)
[2022-10-06] MEDS ORDERED: ONDANSETRON 4 MG/2 ML VIAL IVP STA (10:47)
--- NOTE | 2022-10-06 11:07 | ED ---
Nausea/Vomiting/Diarrhea HPI - General Chief complaint: Nausea/Vomiting/Diarrhea Stated complaint: COVID+,Diarrhea,Syncope Time Seen by Provider: 10/06/22 10:28 Source: patient Mode of arrival: ambulatory Limitations: no limitations - History of Present Illness Initial comments: Patient is a 67-year-old female who presents to the emergency department with a chief complaint of covid symptoms. Patient states she took and at home test on Monday which was positive. Reports fatigue, dry cough, diarrhea, nausea.. Reports 10-20 episodes of diarrhea a day, nonbloody. Denies recent travel and antibiotic use. Patient states she was on the toilet today when she had a syncopal episode. She woke up on the bathroom floor. Unknown head trauma. Denies headache. Denies blood thinner use. She denies history of syncope and arrhythmia. Does admit to history of seizures when she was very young. Patient denies blurred vision, double vision, chest pain, shortness of breath, abdominal pain, vomiting, fever, chills. Denies history of COPD and asthma. - Related Data Home Medications Medication Instructions Recorded Confirmed Acetaminophen/Diphenhydramine 1 tab PO HS PRN 05/25/17 04/16/19 [Tylenol PM 500-25mg] [id number] 1 each PO Q6HR PRN 05/25/17 04/16/19 [Excedrin] Will 650 mg PO HS 04/16/19 04/16/19 Aspirin 162.5 mg PO DAILY 04/16/19 04/16/19 Calcium Carbonate [Calcium] 1,200 mg PO HS 04/16/19 04/16/19 Cholecalciferol [Vitamin D3 (25 1,000 unit PO HS 04/16/19 04/16/19 Mcg = 1000 Iu)] Cider Vinegar [Apple Cider Vinegar] 300 mg PO DAILY 04/16/19 04/16/19 Mutual-3 Fatty Acids [Mutual-3] 2,000 mg PO HS 04/16/19 04/16/19 Papaya [Papaya Enzyme] 1 tab PO DAILY 04/16/19 04/16/19 Phytonadione [Vitamin K] 5 mg PO HS 04/16/19 04/16/19 Rosuvastatin [Crestor] 10 mg PO DAILY 04/16/19 04/16/19 Previous Rx's Medication Instructions Recorded Apixaban [Eliquis Starter Pack 0 mg PO DIRECTED 30 Days #1 pack 04/16/19 (for VTE)] Fluconazole [Diflucan] 150 mg PO ONCE #2 tab 03/07/21 Nitrofurantoin Monohyd/M-Cryst 100 mg PO Q12HR #14 cap 03/07/21 [Macrobid] Allergies Allergy/AdvReac Type Severity Reaction Status Date / Time lubiprostone [From Amitiza] Allergy Unknown Unknown Verified 07/26/19 13:22 Review of Systems ROS Statement: Those systems with pertinent positive or pertinent negative responses have been documented in the HPI. ROS Other: All systems not noted in ROS Statement are negative. Past Medical History Past Medical History: CVA/TIA, GERD/Reflux, Hyperlipidemia, Osteoarthritis (OA), Pulmonary Embolus (PE), Seizure Disorder Additional Past Medical History / Comment(s): IBS, LAST SEIZURE AGE 3, VERY LOOSE STOOLS OFF AND ON History of Any Multi-Drug Resistant Organisms: None Reported Past Surgical History: Appendectomy, Bladder Surgery, Cholecystectomy, Hysterectomy, Orthopedic Surgery Additional Past Surgical History / Comment(s): BREAST IMPLANTS,MARKUS CATARACT SURGERY,BIOPSY LEFT BREAST,RECTOCELE REPAIR, Bladder susp. x 3, heel surgery Past Anesthesia/Blood Transfusion Reactions: Motion Sickness Past Psychological History: Depression Smoking Status: Never smoker Past Alcohol Use History: Occasional Past Drug Use History: None Reported - Past Family History Father Family Medical History: Cancer General Exam Limitations: no limitations General appearance: alert, in no apparent distress Head exam: Present: atraumatic, normocephalic, normal inspection Eye exam: Present: normal appearance, PERRL, EOMI. Absent: scleral icterus, conjunctival injection, periorbital swelling ENT exam: Present: mucous membranes dry Respiratory exam: Present: normal lung sounds bilaterally. Absent: respiratory distress, wheezes, rales, rhonchi, stridor Cardiovascular Exam: Present: regular rate, normal rhythm, normal heart sounds. Absent: systolic murmur, diastolic murmur, rubs, gallop, clicks GI/Abdominal exam: Present: soft, normal bowel sounds. Absent: distended, tenderness, guarding, rebound, rigid Neurological exam: Present: alert, oriented X3, CN II-XII intact Psychiatric exam: Present: normal affect, normal mood Skin exam: Present: warm, dry, intact, normal color. Absent: rash Course Vital Signs 10/06/22 10/06/22 10/06/22 10:19 11:50 13:08 Temperature 97.8 F Pulse Rate 63 90 77 Respiratory 24 18 18 Rate Blood Pressure 81/63 93/68 106/69 O2 Sat by Pulse 100 97 Oximetry 10/06/22 13:42 Temperature Pulse Rate 83 Respiratory 18 Rate Blood Pressure 105/67 O2 Sat by Pulse 97 Oximetry Medical Decision Making - Medical Decision Making This is a 67-year-old female presenting with diarrhea and syncopal episode. Blood pressure 81/63, significantly decreased from patient's baseline. Mucous membranes dry. Afebrile. Laboratory studies obtained and significant for LUCY, creatinine at 1.94. COVID- 19 is detected. Patient given large fluid bolus. Blood pressure improved to 105/67. EKG obtained and interpreted by me which shows sinus rhythm without evidence of ST or T segment changes. Chest x-ray obtained and interpreted by me which is negative for acute process. CT of the head and C-spine obtain interpreted by me which is negative for bleed, fracture, or other acute process. Case discussed with patient. Syncope likely related to volume depletion. Patient not feeling well, is very dehydrated, will benefit from IV fluids. Patient will be admitted. Case discussed with Dr. Wade who accepts admission. Dr. Benito is my attending. - Lab Data Result diagrams: 10/06/22 11:50 10/06/22 11:50 Lab Results 10/06/22 10/06/22 10/06/22 Range/Units 11:50 11:50 11:50 WBC 5.6 (3.8-10.6) k/uL RBC 5.57 H (3.80-5.40) m/uL Hgb 17.4 H (11.4-16.0) gm/dL Hct 51.0 H (34.0-46.0) % MCV 91.6 (80.0-100.0) fL MCH 31.2 (25.0-35.0) pg MCHC 34.0 (31.0-37.0) g/dL RDW 12.4 (11.5-15.5) % Plt Count 189 (150-450) k/uL MPV 7.8 Neutrophils % 73 % Lymphocytes % 14 % Monocytes % 9 % Eosinophils % 1 % Basophils % 3 % Neutrophils # 4.1 (1.3-7.7) k/uL Lymphocytes # 0.8 L (1.0-4.8) k/uL Monocytes # 0.5 (0-1.0) k/uL Eosinophils # 0.0 (0-0.7) k/uL Basophils # 0.2 (0-0.2) k/uL Sodium 140 (137-145) mmol/L Potassium 4.2 (3.5-5.1) mmol/L Chloride 100 (98-107) mmol/L Carbon Dioxide 24 (22-30) mmol/L Anion Gap 16 mmol/L BUN 22 H (7-17) mg/dL Creatinine 1.94 H (0.52-1.04) mg/dL Est GFR (CKD-EPI)AfAm 30 (>60 ml/min/1.73 sqM) Est GFR (CKD-EPI)NonAf 26 (>60 ml/min/1.73 sqM) Glucose 118 H (74-99) mg/dL Calcium 10.0 (8.4-10.2) mg/dL Magnesium 2.1 (1.6-2.3) mg/dL Total Bilirubin 0.4 (0.2-1.3) mg/dL AST 50 H (14-36) U/L ALT 41 H (4-34) U/L Alkaline Phosphatase 94 (38-126) U/L Total Protein 8.3 H (6.3-8.2) g/dL Albumin 5.3 H (3.5-5.0) g/dL Lipase 148 (23-300) U/L Coronavirus (PCR) Detected A (Not Detectd) Influenza Type A RNA (Not Detectd) Influenza Type B (PCR) (Not Detectd) 10/06/22 Range/Units 11:50 WBC (3.8-10.6) k/uL RBC (3.80-5.40) m/uL Hgb (11.4-16.0) gm/dL Hct (34.0-46.0) % MCV (80.0-100.0) fL MCH (25.0-35.0) pg MCHC (31.0-37.0) g/dL RDW (11.5-15.5) % Plt Count (150-450) k/uL MPV Neutrophils % % Lymphocytes % % Monocytes % % Eosinophils % % Basophils % % Neutrophils # (1.3-7.7) k/uL Lymphocytes # (1.0-4.8) k/uL Monocytes # (0-1.0) k/uL Eosinophils # (0-0.7) k/uL Basophils # (0-0.2) k/uL Sodium (137-145) mmol/L Potassium (3.5-5.1) mmol/L Chloride (98-107) mmol/L Carbon Dioxide (22-30) mmol/L Anion Gap mmol/L BUN (7-17) mg/dL Creatinine (0.52-1.04) mg/dL Est GFR (CKD-EPI)AfAm (>60 ml/min/1.73 sqM) Est GFR (CKD-EPI)NonAf (>60 ml/min/1.73 sqM) Glucose (74-99) mg/dL Calcium (8.4-10.2) mg/dL Magnesium (1.6-2.3) mg/dL Total Bilirubin (0.2-1.3) mg/dL AST (14-36) U/L ALT (4-34) U/L Alkaline Phosphatase (38-126) U/L Total Protein (6.3-8.2) g/dL Albumin (3.5-5.0) g/dL Lipase (23-300) U/L Coronavirus (PCR) (Not Detectd) Influenza Type A RNA Not Detected (Not Detectd) Influenza Type B (PCR) Not Detected (Not Detectd) - EKG Data EKG Comments: EKG taken at 11:38, interpreted by me Sinus rhythm, no ST segment or T-wave changes ventricular rate 84 HI interval 155 QRS duration 93 QTc 440 Disposition Clinical Impression: Syncope, COVID-19, LUCY (acute kidney injury), Dehydration, Diarrhea Disposition: ADMITTED IP TO THIS HOSP Condition: Good
[2022-10-06 12:03] LABS: Basophils # (A) 0.2 k/uL (0-0.2); Basophils % (A) 3 %; Eosinophils % (A) 1 %; HGB 17.4 gm/dL (11.4-16.0); Lymphocytes # (A) 0.8 k/uL (1.0-4.8); Lymphocytes % (A) 14 %; MCH 31.2 pg (25.0-35.0); MCV 91.6 fL (80.0-100.0); Mean Platelet Volume 7.8; Monocytes # (A) 0.5 k/uL (0-1.0); Monocytes % (A) 9 %; Neutrophils # (A) 4.1 k/uL (1.3-7.7); Neutrophils % (A) 73 %; Platelet Count 189 k/uL (150-450); RBC 5.57 m/uL (3.80-5.40); RDW 12.4 % (11.5-15.5); WBC 5.6 k/uL (3.8-10.6)
[2022-10-06 12:13] LABS: Albumin 5.3 g/dL (3.5-5.0); Magnesium 2.1 mg/dL (1.6-2.3); Potassium 4.2 mmol/L (3.5-5.1); Total Bilirubin 0.4 mg/dL (0.2-1.3); Total Protein 8.3 g/dL (6.3-8.2)
--- NOTE | 2022-10-06 12:31 | XR ---
EXAMINATION TYPE: XR chest 2V DATE OF EXAM: 10/06/2022 COMPARISON: 03/07/2021 INDICATION: Syncope TECHNIQUE: Frontal and lateral views of the chest are obtained. FINDINGS: The heart size is normal. The pulmonary vasculature is normal. The lungs are clear. Loop recorder is over the chest. IMPRESSION: 1. No acute pulmonary process.
--- NOTE | 2022-10-06 12:41 | CT ---
EXAMINATION TYPE: CT brain cspine wo con CT DLP: 1293.4 mGycm, Automated exposure control for dose reduction was used. DATE OF EXAM: 10/06/2022 12:27 PM COMPARISON: None.. CLINICAL INDICATION:Female, 67 years old with history of syncope with fall; Fall, pain TECHNIQUE: Brain: Multiple axial CT images of the brain were obtained without IV contrast. Cspine: Axial CT images from the skull base to the inferior aspect of T2 we obtained without intraven ous contrast. Coronal and sagittal reformatted images were also reviewed. FINDINGS: Brain: Extra-axial spaces: No abnormal extra-axial fluid collections. Ventricular system: Within normal limits Cerebral parenchyma: No acute intraparenchymal hemorrhage or mass effect. The green-white junction is well differentiated. Cerebellum: Unremarkable. Mass effect: No evidence of midline shift. Intracranial vasculature: Atherosclerotic calcifications of the intracranial vessels. Soft tissues: Normal. Calvarium/osseous structures: No depressed skull fracture. Paranasal sinuses and mastoid air cells: Clear. Visualized orbits: Bilateral aphakia Cervical spine: Fracture: None. Osseous structures: Multilevel degenerative disc disease changes with endplate spurring and disc oste ophyte complex's. Multilevel facet arthropathy. Vertebral alignment: Straightening of the cervical spine which may be due to patient position versus muscle spasm. Spinal canal/Neural Foramina: Disc osteophyte complexes at C3-C4, C4-C5, C5-C6, and C6-T1 with at sameer st mild spinal canal stenosis. Facet joint uncovertebral joint arthropathy scattered throughout the c ervical spine with varying degrees of neural foraminal stenosis. Neck soft tissues: Prevertebral soft tissues are within normal limits. Other: The airway is patent. Biapical scarring. IMPRESSION: 1. No acute intracranial process. 2. No evidence of cervical spine fracture. 3. Mild multilevel degenerative disc disease.
[2022-10-06] MEDS ORDERED: NALOXONE 0.4 MG/ML 1 ML VIAL IV PRN (13:41)
[2022-10-06] MEDS: SODIUM CHLORIDE 0.9% 1,000 ML IV SCH ×2 (14:33→22:57)
--- NOTE | 2022-10-06 15:07 | P.HPIM ---
History of Present Illness H&P Date: 10/06/22 Chief Complaint: fall Patient is a 67-year-old female with history of dyslipidemia, mood disorder, and remote DVT not on anticoagulation presented after syncope and fall. Patient claims that she had recent COVID-19 exposure from her daughter. She contracted COVID-19 herself on Monday. Since then, she has been experiencing fevers, chills, diarrhea. She denies any cough or shortness of breath, or chest pain. She denies any nausea, vomiting. However, each time she eats or drinks, she has diarrhea. She denies any recent urinary changes. She denies any travel history. Her fever subsided after 2 days, but diarrhea has persisted. This morning, when she was going to the bathroom, she had an episode of syncope and fall. She claims that she found herself on the floor. She is unsure whether she injured any part of her body. However, she denies any significant muscle or body aches. She has not noticed any bruising there. She denies any palpi tations or lightheadedness prior to her syncope. In the ED, her initial vitals were 81/63, afebrile, pulse rate 63, respiratory rate 23. Her lab work was significant for creatinine of 1.94, positive for COVID-19. She was given 1 L in the ED, with improvement in her blood pressure. CT head and spine was negative for any fractures. EKG showed normal sinus rhythm. Patient seen and examined at bedside. Pertinent positives and negatives as discussed in HPI, a complete review of systems was performed and all other systems are negative. Vital signs reviewed General: nontoxic, no distress, appears at stated age Derm: warm, dry Head: atraumatic, normocephalic, symmetric Eyes: EOMI, no lid lag, anicteric sclera, pupils equal round reactive to light ENT: Nose and ears atraumatic Neck: No thyromegaly, supple Mouth: no lip lesion, dry membranes moist Cardiovascular: S1S2 reg, no murmur, no edema Lungs: clear to auscultation bilateral, no rhonchi, no rales, no wheeze, no accessory muscle use Abdominal: soft, nontender to palpation, no guarding, no appreciable organomegaly Ext: no gross muscle atrophy, muscle strength muscle strength 5 out of 5 in all 4 extremities, no contractures Neuro: CN II-XII grossly intact Psych: Alert, oriented, appropriate affect Assessment/Plan: Acute symptomatic COVID-19 infection Viral gastroenteritis Syncope and fall Hypotension Dehydration Acute kidney injury -Continue IV fluids -Advance diet as tolerated -No respiratory complaints -Orthostatic vitals -Telemetry -Renal ultrasound -Monitor urine output and BMP Chronic medical problems: Dyslipidemia Mood disorder -Continue home medications The patient is admitted with an anticipated greater than 2 midnight stay for evaluation of syncope and fall. Surrogate decision-maker: CODE STATUS: Full code DVT prophylaxis: Heparin subcu Anticipated discharge date: 10/[address]: Home A total of 53 minutes was spent on the care of this complex patient more than 50% of the time was spent in counseling and care coordination. Past Medical History Past Medical History: CVA/TIA, GERD/Reflux, Hyperlipidemia, Osteoarthritis (OA), Pulmonary Embolus (PE), Seizure Disorder Additional Past Medical History / Comment(s): IBS, LAST SEIZURE AGE 3, VERY LOOSE STOOLS OFF AND ON History of Any Multi-Drug Resistant Organisms: None Reported Past Surgical History: Appendectomy, Bladder Surgery, Cholecystectomy, Hyste rectomy, Orthopedic Surgery Additional Past Surgical History / Comment(s): BREAST IMPLANTS,MARKUS CATARACT SURGERY,BIOPSY LEFT BREAST,RECTOCELE REPAIR, Bladder susp. x 3, heel surgery Past Anesthesia/Blood Transfusion Reactions: Motion Sickness Past Psychological History: Depression Smoking Status: Never smoker Past Alcohol Use History: Occasional Past Drug Use History: None Reported - Past Family History Father Family Medical History: Cancer Medications and Allergies Home Medications Medication Instructions Recorded Confirmed Type Cider Vinegar [Apple Cider Vinegar] 300 mg PO DAILY PRN 04/16/19 10/06/22 History Rosuvastatin [Crestor] 10 mg PO DAILY 04/16/19 10/06/22 History Ascorbic Acid [Vitamin C] 500 mg PO DAILY 10/06/22 10/06/22 History Aspirin EC [Ecotrin Low Dose] 81 mg PO DAILY 10/06/22 10/06/22 History Cholecalciferol [Vitamin D3 (25 25 mcg PO DAILY 10/06/22 10/06/22 History Mcg = 1000 Iu)] Escitalopram [Lexapro] 10 mg PO HS 10/06/22 10/06/22 History Glucosam/Hector-Msm1/C/Clayton/Bosw 1 tab PO HS 10/06/22 10/06/22 History [Glucosamine-Chondroitin Tablet] Ibuprofen [Motrin] 800 mg PO Q8H PRN 10/06/22 10/06/22 History Magnesium 200 mg PO HS 10/06/22 10/06/22 History Potassium Gluconate [Potassium 99 mg PO DAILY 10/06/22 10/06/22 History Gluconate ER] Turmeric Root Extract [Turmeric] 500 mg PO DAILY 10/06/22 10/06/22 History Ubidecarenone [Coenzyme Q10] 200 mg PO DAILY 10/06/22 10/06/22 History Vitamin K2 (Mk-4) [Vitamin K2 100 mcg PO DAILY 10/06/22 10/06/22 History (Menaquinone-4)] buPROPion HCL [buPROPion HCL XL] 300 mg PO DAILY 10/06/22 10/06/22 History Allergies Allergy/AdvReac Type Severity Reaction Status Date / Time lubiprostone [From Amitiza] Allergy Unknown Unknown Verified 10/06/22 14:22 Physical Exam Vitals: Vital Signs Temp Pulse Resp BP Pulse Ox 10/06/22 14:40 98.8 F 81 18 110/67 95 10/06/22 13:42 83 18 105/67 97 10/06/22 13:08 77 18 106/69 10/06/22 11:50 90 18 93/68 97 10/06/22 10:19 97.8 F 63 24 81/63 100 Intake and Output 10/06/22 10/06/22 10/06/22 06:59 14:59 22:59 Other: Weight 72.575 kg Results CBC & Chem 7: 10/06/22 11:50 10/06/22 11:50 Labs: Abnormal Lab Results - Last 24 Hours (Table) 10/06/22 10/06/22 10/06/22 Range/Units 11:50 11:50 11:50 RBC 5.57 H (3.80-5.40) m/uL Hgb 17.4 H (11.4-16.0) gm/dL Hct 51.0 H (34.0-46.0) % Lymphocytes # 0.8 L (1.0-4.8) k/uL BUN 22 H (7-17) mg/dL Creatinine 1.94 H (0.52-1.04) mg/dL Glucose 118 H (74-99) mg/dL AST 50 H (14-36) U/L ALT 41 H (4-34) U/L Total Protein 8.3 H (6.3-8.2) g/dL Albumin 5.3 H (3.5-5.0) g/dL Coronavirus (PCR) Detected A (Not Detectd)
[2022-10-06] MEDS: ACETAMINOPHEN TAB 500 MG TAB PO PRN (15:12)
[2022-10-06] MEDS: HEPARIN SODIUM,PORCINE/PF 5,000 UNIT/0.5 ML SYRINGE SQ SCH ×2 (17:01→23:45)
[2022-10-06 18:39] LABS: Appearance,Urine Cloudy (Clear); Bacteria,Urine Many /hpf; Bilirubin,Urine Negative (Negative); Blood,Urine Negative (Negative); Color,Urine Yellow; Glucose,Urine (UA) Negative (Negative); Hyaline Casts,Urine 33 /lpf (0-2); Ketones,Urine Trace (Negative); Leukocyte Esterase,Urine Large (Negative); Mucus,Urine Rare /hpf; Nitrite,Urine Positive (Negative); PH, Urine 5.5 (5.0-8.0); Protein,Urine Trace (Negative); RBC,Urine 3 /hpf (0-5); Specific Gravity,Urine 1.017 (1.001-1.035); Squamous Epithelial Cell,Urine <1 /hpf (0-4); Urobilinogen,Urine <2.0 mg/dL (<2.0); WBC,Urine 131 /hpf (0-5)
[2022-10-06] MEDS: ESCITALOPRAM 10 MG TAB PO SCH (20:59)
[2022-10-07] MEDS: ACETAMINOPHEN TAB 500 MG TAB PO PRN ×3 (01:24→15:57)
[2022-10-07] MEDS: SODIUM CHLORIDE 0.9% 1,000 ML IV SCH ×3 (01:24→22:49)
[2022-10-07 08:49] LABS: African American GFR (CKD) 76.7 (60.0-200.0); Anion Gap 8.7 mmol/L (10.00-18.00); BUN/Creat Ratio 15.22 Ratio (12.00-20.00); Blood Urea Nitrogen 13.7 mg/dL (9.0-27.0); Carbon Dioxide 21.3 mmol/L (20.0-27.5); Non-African American GFR(CKD) 66.2 (60.0-200.0); Potassium 3.7 mmol/L (3.5-5.5)
--- NOTE | 2022-10-07 08:50 | US ---
EXAMINATION TYPE: US kidneys/renal and bladder DATE OF EXAM: 10/07/2022 COMPARISON: CLINICAL HISTORY: LUCY. Inpatient. Abnormal labs. Covid. EXAM MEASUREMENTS: Right Kidney: 10.0 x 4.8 x 4.0 cm Left Kidney: 10.1 x 5.0 x 4.7 cm Right Kidney: No hydronephrosis or masses seen Left Kidney: Lower medial possible dilated collecting system vs mild hydronephrosis Bladder: Distended, anechoic Bilateral Jets not seen Borderline to mild left-sided hydronephrosis. No nephrolithiasis is seen. No masses are identified. The urinary bladder is anechoic. IMPRESSION: Borderline to mild left-sided hydronephrosis.
[2022-10-07] MEDS: ASCORBIC ACID 500 MG TAB PO SCH (09:28)
[2022-10-07] MEDS: CHOLECALCIFEROL 25 MCG (1000 IU) TABLET PO SCH (09:28)
[2022-10-07] MEDS: HEPARIN SODIUM,PORCINE/PF 5,000 UNIT/0.5 ML SYRINGE SQ SCH ×3 (09:28→23:09)
[2022-10-07] MEDS: ASPIRIN 81 MG PO SCH (09:28)
[2022-10-07] MEDS: ATORVASTATIN 20 MG TAB PO SCH (09:28)
[2022-10-07] MEDS: buPROPion XL 300 MG TAB.ER.24H PO SCH (09:28)
--- NOTE | 2022-10-07 10:44 | P.PN ---
Subjective Progress Note Date: 10/07/22 Principal diagnosis: diarrhea Hospital Course: 67-year-old female with history of dyslipidemia, mood disorder, and remote DVT not on anticoagulation presented after syncope and collapse. Patient admitted for COVID-19 infection, viral gastroenteritis leading to hypotension and dehydration. Patient was resuscitated with IV fluids. On admission patient had elevated creatinine of 1.94, resolved with IV fluids. Subjective: Patient seen and examined at bedside. No acute events overnight. She claims that her diarrhea is improving. She had total of 5 bowel movements yesterday. She continues to tolerate oral diet. She denies any chest pain, shortness of breath, abdominal pain, nausea, vomiting, or urinary complaints. Pertinent positives and negatives as discussed above, a complete review of systems was performed and all other systems are negative. Vitals Signs Reviewed. General: nontoxic, no distress, appears at stated age Derm: warm, dry Head: atraumatic, normocephalic, symmetric Eyes: EOMI, no lid lag, anicteric sclera Mouth: no lip lesion, mucus membranes moist Cardiovascular: S1S2 reg, no murmur Lungs: CTA bilateral, no rhonchi, no rales , no accessory muscle use Abdominal: soft, nontender to palpation, no guarding, no appreciable organomegaly Ext: no gross muscle atrophy, no edema, no contractures Neuro: CN II-XI grossly intact, no focal neuro deficits Psych: Alert, oriented, appropriate affect Assessment and Plan: Acute symptomatic COVID-19 infection Viral gastroenteritis Syncope and collapse Hypotension -resolved Dehydration -resolved Acute kidney injury -resolved -Continue IV fluids -Advance diet as tolerated -No respiratory complaints -Orthostatic vitals ordered were not completed -Telemetry -Renal ultrasound - shows possible mild left sided hydronephrosis, distended bladder, no nephrolithiasis -Monitor urine output and BMP Chronic medical problems: Dyslipidemia Mood disorder -Continue home medications DVT ppx: SQ heparin Code status: Full code Anticipated discharge place: Home Anticipated discharge time: Likely tomorrow Objective - Vital Signs Vital signs: Vital Signs Temp 98.1 F 10/07/22 05:59 Pulse 70 10/07/22 05:59 Resp 16 10/07/22 05:59 BP 93/64 10/07/22 05:59 Pulse Ox 97 10/07/22 05:59 FiO2 Intake & Output 10/06/22 10/07/22 10/07/22 18:59 06:59 18:59 Intake Total 2400 Balance 2400 Weight 72.575 kg Intake: Intake, IV Titration 1560 Amount Sodium Chloride 0.9% 1, 1560 000 ml @ 130 mls/hr IV . [id number] [facility] Rx#:[id number] Oral 840 Other: Voiding Method Toilet # Voids 0 2 # Bowel Movements 2 - Labs CBC & Chem 7: 10/06/22 11:50 10/07/22 06:09 Labs: Abnormal Lab Results - Last 24 Hours (Table) 10/06/22 10/06/22 10/06/22 Range/Units 11:50 11:50 11:50 RBC 5.57 H (3.80-5.40) m/uL Hgb 17.4 H (11.4-16.0) gm/dL Hct 51.0 H (34.0-46.0) % Lymphocytes # 0.8 L (1.0-4.8) k/uL Chloride (96-109) mmol/L Anion Gap (10.00-18.00) mmol/L BUN 22 H (7-17) mg/dL Creatinine 1.94 H (0.52-1.04) mg/dL Glucose 118 H (74-99) mg/dL Calcium (8.7-10.3) mg/dL AST 50 H (14-36) U/L ALT 41 H (4-34) U/L Total Protein 8.3 H (6.3-8.2) g/dL Albumin 5.3 H (3.5-5.0) g/dL Urine Appearance (Clear) Urine Protein (Negative) Urine Ketones (Negative) Urine Nitrite (Negative) Ur Leukocyte Esterase (Negative) Urine WBC (0-5) /hpf Urine Bacteria (None) /hpf Hyaline Casts (0-2) /lpf Urine Mucus (None) /hpf Coronavirus (PCR) Detected A (Not Detectd) 10/06/22 10/07/22 Range/Units 18:14 06:09 RBC (3.80-5.40) m/uL Hgb (11.4-16.0) gm/dL Hct (34.0-46.0) % Lymphocytes # (1.0-4.8) k/uL Chloride 112 H (96-109) mmol/L Anion Gap 8.70 L (10.00-18.00) mmol/L BUN (7-17) mg/dL Creatinine (0.52-1.04) mg/dL Glucose (74-99) mg/dL Calcium 8.0 L (8.7-10.3) mg/dL AST (14-36) U/L ALT (4-34) U/L Total Protein (6.3-8.2) g/dL Albumin (3.5-5.0) g/dL Urine Appearance Cloudy H (Clear) Urine Protein Trace H (Negative) Urine Ketones Trace H (Negative) Urine Nitrite Positive H (Negative) Ur Leukocyte Esterase Large H (Negative) Urine WBC 131 H (0-5) /hpf Urine Bacteria Many H (None) /hpf Hyaline Casts 33 H (0-2) /lpf Urine Mucus Rare H (None) /hpf Coronavirus (PCR) (Not Detectd) Microbiology - Last 24 Hours (Table) 10/06/22 18:14 Urine Culture - Preliminary Urine,Voided
[2022-10-07] MEDS: ESCITALOPRAM 10 MG TAB PO SCH (21:41)
[2022-10-08] MEDS: ACETAMINOPHEN TAB 500 MG TAB PO PRN ×2 (00:35→09:06)
[2022-10-08] MEDS: SODIUM CHLORIDE 0.9% 1,000 ML IV SCH ×2 (00:35→08:30)
[2022-10-08] MEDS: ASPIRIN 81 MG PO SCH (08:30)
[2022-10-08] MEDS: ASCORBIC ACID 500 MG TAB PO SCH (08:30)
[2022-10-08] MEDS: CHOLECALCIFEROL 25 MCG (1000 IU) TABLET PO SCH (08:30)
[2022-10-08] MEDS: HEPARIN SODIUM,PORCINE/PF 5,000 UNIT/0.5 ML SYRINGE SQ SCH (08:30)
[2022-10-08] MEDS: ATORVASTATIN 20 MG TAB PO SCH (08:30)
[2022-10-08] MEDS: buPROPion XL 300 MG TAB.ER.24H PO SCH (08:30)
[2022-10-08 08:39] VITALS: RESP 18
[2022-10-08 10:46] VITALS: BP 116/81; PULSE 62; TEMP 98.1
--- NOTE | 2022-10-08 10:47 | P.DS ---
Providers Date of admission: 10/06/22 12:52 Expected date of discharge: 10/08/22 Attending physician: Michael Wade MD Primary care physician: Gucci Horton Hospital Course: Discharge Diagnosis: Acute symptomatic COVID-19 infection Viral gastroenteritis Syncope and collapse Hypotension Dehydration Acute kidney injury Dyslipidemia Mood disorder Hospital Course: 67-year-old female with history of dyslipidemia, mood disorder, and remote DVT not on anticoagulation presented after syncope and collapse. CT head and spine was negative for any fracture. Patient admitted for COVID-19 infection, viral gastroenteritis leading to hypotension and dehydration. Patient was resuscitated with IV fluids. On admission patient had elevated creatinine of 1.94, resolved with IV fluids. Renal ultrasound showed normal right kidney, left kidney and lower medial possible dilated collecting system versus mild hydronephrosis, distended bladder. Patient was able to tolerate regular diet and her bowel movements had significantly reduced. Patient will continue mostly liquid diet, advance as tolerated. She'll follow-up with her primary care doctor. Patient seen and examined at bedside. Vital signs reviewed and stable. General: nontoxic, no distress, appears at stated age Derm: warm, dry Head: atraumatic, normocephalic, symmetric Eyes: EOMI, no lid lag, anicteric sclera Mouth: no lip lesion, mucus membranes moist Cardiovascular: S1S2 reg, no murmur Lungs: CTA bilateral, no rhonchi, no rales , no accessory muscle use Abdominal: soft, nontender to palpation, no guarding, no appreciable organomegaly Ext: no gross muscle atrophy, no edema, no contractures Neuro: CN II-XI grossly intact, no focal neuro deficits Psych: Alert, oriented, appropriate affect A total of 42 minutes of time were spent preparing this complex discharge summary. Patient was discharged on 10/08/22 at 9:56. Patient Condition at Discharge: Stable Plan - Discharge Summary Discharge Rx Participant: No New Discharge Prescriptions: New Acetaminophen Tab [Tylenol] 1,000 mg PO Q8HR PRN #60 tab PRN Reason: Fever And/ Or Pain Continue Rosuvastatin [Crestor] 10 mg PO DAILY Cider Vinegar [Apple Cider Vinegar] 300 mg PO DAILY PRN PRN Reason: Heartburn Escitalopram [Lexapro] 10 mg PO HS Vitamin K2 (Mk-4) [Vitamin K2 (Menaquinone-4)] 100 mcg PO DAILY Aspirin EC [Ecotrin Low Dose] 81 mg PO DAILY Ubidecarenone [Coenzyme Q10] 200 mg PO DAILY Glucosam/Hector-Msm1/C/Clayton/Bosw [Glucosamine-Chondroitin Tablet] 1 tab PO HS Magnesium 200 mg PO HS Ascorbic Acid [Vitamin C] 500 mg PO DAILY buPROPion HCL [buPROPion HCL XL] 300 mg PO DAILY Cholecalciferol [Vitamin D3 (25 Mcg = 1000 Iu)] 25 mcg PO DAILY Turmeric Root Extract [Turmeric] 500 mg PO DAILY Potassium Gluconate [Potassium Gluconate ER] 99 mg PO DAILY Discontinued Ibuprofen [Motrin] 800 mg PO Q8H PRN PRN Reason: Pain Discharge Medication List Cider Vinegar [Apple Cider Vinegar] 300 mg PO DAILY PRN 04/16/19 [History] Rosuvastatin [Crestor] 10 mg PO DAILY 04/16/19 [History] Ascorbic Acid [Vitamin C] 500 mg PO DAILY 10/06/22 [History] Aspirin EC [Ecotrin Low Dose] 81 mg PO DAILY 10/06/22 [History] Cholecalciferol [Vitamin D3 (25 Mcg = 1000 Iu)] 25 mcg PO DAILY 10/06/22 [History] Escitalopram [Lexapro] 10 mg PO HS 10/06/22 [History] Glucosam/Hector-Msm1/C/Clayton/Bosw [Glucosamine-Chondroitin Tablet] 1 tab PO HS 10/06/22 [History] Magnesium 200 mg PO HS 10/06/22 [History] Potassium Gluconate [Potassium Gluconate ER] 99 mg PO DAILY 10/06/22 [History] Turmeric Root Extract [Turmeric] 500 mg PO DAILY 10/06/22 [History] Ubidecarenone [Coenzyme Q10] 200 mg PO DAILY 10/06/22 [History] Vitamin K2 (Mk-4) [Vitamin K2 (Menaquinone-4)] 100 mcg PO DAILY 10/06/22 [History] buPROPion HCL [buPROPion HCL XL] 300 mg PO DAILY 10/06/22 [History] Acetaminophen Tab [Tylenol] 1,000 mg PO Q8HR PRN #60 tab 10/08/22 [Rx] Follow up Appointment(s)/Referral(s): Gucci Horton MD [Primary Care Provider] - 1-2 days Patient Instructions/Handouts: Gastroenteritis (DC), COVID-19 (Coronavirus Disease 2019) (DC) Activity/Diet/Wound Care/Special Instructions: Please see your PCP in 1-2 days. Start with liquid diet, and slowly advance to more solids. Discharge Disposition: HOME SELF-CARE
[2022-10-08 11:43] LABS: African American GFR (CKD) 109.3 (60.0-200.0); Anion Gap 10.7 mmol/L (10.00-18.00); BUN/Creat Ratio 11.67 Ratio (12.00-20.00); Calcium 8.4 mg/dL (8.7-10.3); Carbon Dioxide 22.3 mmol/L (20.0-27.5); Non-African American GFR(CKD) 94.3 (60.0-200.0); Potassium 3.8 mmol/L (3.5-5.5)
== END 2022-10-08 13:25 | disposition home or self-care (01) | DRG 178 ==
LOC: EC 09:58 → 4SSUR 12:52
PROVIDERS: ADMIT Student in an Organized Health Care Education/Training Program; ATTEND Student in an Organized Health Care Education/Training Program
DX: U07.1 COVID-19 (principal); N17.9 Acute kidney failure, unspecified; A08.4 Viral intestinal infection, unspecified; E78.5 Hyperlipidemia, unspecified; F32.A Depression, unspecified; I95.9 Hypotension, unspecified; M19.90 Unspecified osteoarthritis, unspecified site; E86.0 Dehydration; K21.9 Gastro-esophageal reflux disease without esophagitis; G40.909 Epilepsy, unspecified, not intractable, without status epilepticus; K58.0 Irritable bowel syndrome with diarrhea; Z79.82 Long term (current) use of aspirin; Z79.899 Other long term (current) drug therapy; Z86.711 Personal history of pulmonary embolism; Z86.73 Personal history of transient ischemic attack (TIA), and cerebral infarction without residual deficits; Z98.82 Breast implant status; Z28.310 Unvaccinated for COVID-19; Z28.21 Immunization not carried out because of patient refusal; Z86.718 Personal history of other venous thrombosis and embolism; Z91.81 History of falling
CPT/HCPCS: 36415; 70450; 71046; 72125; 76770; 80048; 80053; 81001; 83690; 83735; 85025; 87077; 87086; 87186; 87502; 87635; 93005; 96361; 96374; 99285

== ENCOUNTER → 2023-05-18 | Outpatient (CLI) | payer MEDICARE ==
--- NOTE | 2023-05-19 08:39 | MM ---
Reason for Exam: Hx of breast augmentation, asymptomatic. Last mammogram was performed 1 year(s) and 8 month(s) ago. Patient History: Menarche at age 14. First Full-Term at age 18. Hysterectomy at age 36. Postmenopausal. Patient has history of breast feeding. Estrogen for 7 years from age 36 until age 51. 10/2006, Excisional Biopsy on the Left side. 06/14/2017, Lumpectomy on the Left side. 05/11/2017, High risk Core Biopsy on the left side. 1999, Bilateral Implants. Maternal cousin had breast cancer. Risk Values: Carola 5 year model risk: 1.7%. NCI Lifetime model risk: 5.5%. Prior Study Comparison: 05/11/2017 Bilateral Diagnostic Mammogram, [facility]. 02/09/2018 Bilateral Diagnostic Mammogram, [facility]. 05/27/2019 Bilateral Screening Mammogram, [facility]. 06/01/2020 Bilateral Screening Mammogram, [facility]. 09/21/2021 Bilateral Screening Mammogram, [facility]. Tissue Density: There are scattered fibroglandular densities. Findings: Analyzed By CAD. There is no suspicious group of microcalcifications or new suspicious mass in either breast. Bilateral breast implants are intact. Overall Assessment: Benign, BI-RAD 2 Management: Screening Mammogram of both breasts in 1 year. . Patient should continue monthly self-breast exams. A clinical breast exam by your physician is recommended on an annual basis. This exam should not preclude additional follow-up of suspicious palpable abnormalities. Note on Carola scores and lifetime risk: 1. A Carola score greater than 3% is considered moderate risk. If this is the case, consider specialist referral to assess eligibility for a risk reducing agent. 2. If overall lifetime risk for the development of breast cancer is 20% or higher, the patient may qualify for future screening with alternating mammogram and breast MRI. Electronically signed and approved by: Jose Salgado M.D. Radiologis
== END | disposition home or self-care (01) ==
LOC: RADMAMWWP 12:54
PROVIDERS: ATTEND Family Medicine
DX: Z12.31 Encounter for screening mammogram for malignant neoplasm of breast (principal); Z78.0 Asymptomatic menopausal state; Z80.3 Family history of malignant neoplasm of breast
CPT/HCPCS: 77063; 77067

== ENCOUNTER → 2023-11-01 | Outpatient (CLI) | payer MEDICARE ==
--- NOTE | 2023-11-01 19:28 | BD ---
EXAMINATION TYPE: Axial Bone Density DATE OF EXAM: 11/01/2023 CLINICAL HISTORY: 68 years old Female. ICD-10 CODE: M85.80 OTHER BONE DISORDER Height: 63 Weight: 161 FRAX RISK QUESTIONS: Family History (Parent hip fracture): yes History of Fracture in Adulthood: yes Secondary Osteoporosis: yes 3. Menopause before 45: yes RISK FACTORS HISTORY OF: hx of lt foot x3 time, rt foot x1, non healing fx, x1 time, clavicle and humerus left side as youth, Family History of Osteoporosis: yes, grandmother, multiple fractures Postmenopausal woman: yes, hysterectomy at age 36 Take estrogen and/or progesterone medications: yes, in the past for a short while... Hyperparathyroidism: no Adrenal Insufficiency: no MEDICATIONS: Additional Medications: calcium and vit d, magnesium, aspirin, Buspar, statin for cholesterol, hx of osteoporosis IV therapy in the past Additional History: hx of stroke and blood clots, hypertension, anxiety, EXAM MEASUREMENTS: Bone mineral densitometry was performed using the [employer]. Bone mineral density as measured about the Lumbar spine is: ----- L1-L4(G/cm2): 1.182 T Score Values are as follows: ----- L1: -0.8 ----- L2: -0.2 ----- L3: -0.1 ----- L4: 0.8 ----- L1-L4: 0.0 Z Score Values are as follows: ----- L1: 0.5 ----- L2: 1.2 ----- L3: 1.2 ----- L4: 2.1 ----- L1-L4: 1.4 Bone mineral density has: Increased 3.6% since study of: 09.21.2021 Bone mineral density about the R hip (g/cm2): 0.889 Bone mineral density about the L hip (g/cm2): 0.868 T Score values are as follows: -----R Neck: -1.1 -----L Neck: -1.4 -----R Total: -0.9 -----L Total: -1.1 Z Score values are as follows: -----R Neck: 0.3 -----L Neck: 0.1 -----R Total: 0.2 -----L Total: 0.1 Bone mineral density has: Decreased -0.5% since study of: 09.21.2021 FRAX%s: The graph provided illustrates a 24.2% chance for a major osteoporotic fx and a 3.0% chance f or the hips probability for fx in 10 years time. IMPRESSION: Osteopenia (T Score between -2.5 and -1). There is slightly increased risk of fracture and the patient may be considered for treatment. Re-Screen 2-5 years. NOTE: T-SCORE=SD OF THE YOUNG ADULT MEAN.
== END | disposition home or self-care (01) ==
LOC: RADBDWWP 12:27
PROVIDERS: ATTEND Family Medicine
DX: M85.89 Other specified disorders of bone density and structure, multiple sites (principal); Z78.0 Asymptomatic menopausal state
CPT/HCPCS: 77080

== ENCOUNTER 2024-08-14 17:01 | Emergency (ER) | payer MEDICARE ==
[2024-08-14 17:04] VITALS: PULSE 96
--- NOTE | 2024-08-14 17:08 | ED ---
Lower Extremity Injury HPI - General Chief Complaint: Extremity Injury, Lower Stated Complaint: R foot injury Time Seen by Provider: 08/14/24 17:07 Source: patient, RN notes reviewed Mode of arrival: wheelchair Limitations: no limitations - History of Present Illness Initial Comments: 69-year-old female presented to ER with a chief complaint of right foot injury. Patient states she was moving her harvest table when the bench which was on top of the table accidentally fell landing on her big toe. She states the nail is coming off of her big toe. Denies any other injuries or complaints. Tetanus status unknown. - Related Data Home Medications Medication Instructions Recorded Confirmed Cider Vinegar [Apple Cider Vinegar] 300 mg PO DAILY PRN 04/16/19 10/06/22 Rosuvastatin [Crestor] 10 mg PO DAILY 04/16/19 10/06/22 Ascorbic Acid [Vitamin C] 500 mg PO DAILY 10/06/22 10/06/22 Aspirin EC [Ecotrin Low Dose] 81 mg PO DAILY 10/06/22 10/06/22 Cholecalciferol [Vitamin D3 (25 25 mcg PO DAILY 10/06/22 10/06/22 Mcg = 1000 Iu)] Escitalopram [Lexapro] 10 mg PO HS 10/06/22 10/06/22 Glucosam/Hector-Msm1/C/Clayton/Bosw 1 tab PO HS 10/06/22 10/06/22 [Glucosamine-Chondroitin Tablet] Magnesium 200 mg PO HS 10/06/22 10/06/22 Potassium Gluconate [Potassium 99 mg PO DAILY 10/06/22 10/06/22 Gluconate ER] Turmeric Root Extract [Turmeric] 500 mg PO DAILY 10/06/22 10/06/22 Ubidecarenone [Coenzyme Q10] 200 mg PO DAILY 10/06/22 10/06/22 Vitamin K2 (Mk-4) [Vitamin K2 100 mcg PO DAILY 10/06/22 10/06/22 (Menaquinone-4)] buPROPion HCL [buPROPion HCL XL] 300 mg PO DAILY 10/06/22 10/06/22 Previous Rx's Medication Instructions Recorded Acetaminophen Tab [Tylenol] 1,000 mg PO Q8HR PRN #60 tab 10/08/22 Cephalexin [Keflex] 500 mg PO Q6HR 1 Days #40 cap 08/14/24 Allergies Allergy/AdvReac Type Severity Reaction Status Date / Time lubiprostone [From Amitiza] Allergy Unknown Unknown Verified 08/14/24 17:04 Review of Systems ROS Statement: Those systems with pertinent positive or pertinent negative responses have been documented in the HPI. ROS Other: All systems not noted in ROS Statement are negative. Past Medical History Past Medical History: CVA/TIA, GERD/Reflux, Hyperlipidemia, Osteoarthritis (OA), Pulmonary Embolus (PE), Seizure Disorder Additional Past Medical History / Comment(s): IBS, LAST SEIZURE AGE 1, VERY LOOSE STOOLS OFF AND ON, loop recorder on since 10/15 History of Any Multi-Drug Resistant Organisms: None Reported Past Surgical History: Appendectomy, Bladder Surgery, Cholecystectomy, Hysterectomy, Orthopedic Surgery, Tubal Ligation Additional Past Surgical History / Comment(s): BREAST IMPLANTS,MARKUS CATARACT SURGERY,BIOPSY LEFT BREAST x2,RECTOCELE REPAIR, Bladder susp. x 3, heel surgery/then plate and pin removal, eyelid lift Past Anesthesia/Blood Transfusion Reactions: Motion Sickness Past Psychological History: Depression Smoking Status: Never smoker Past Alcohol Use History: Occasional Past Drug Use History: None Reported - Past Family History Father Family Medical History: Cancer General Exam - General Exam Comments Initial Comments: Visual Physical Exam Vital signs reviewed General: Well-appearing, nontoxic, no acute distress. Head: Normocephalic, atraumatic Eyes: PERRLA, EOMI ENT: Airway patent Chest: Nonlabored breathing Skin: No visual rash, normal skin tone Neuro: Alert and oriented 3 Musculoskeletal: No gross abnormalities, right foot wrapped in towel Limitations: no limitations General appearance: alert, in no apparent distress Respiratory exam: Present: normal lung sounds bilaterally. Absent: respiratory distress, wheezes, rales, rhonchi, stridor Cardiovascular Exam: Present: regular rate, normal rhythm, normal heart sounds. Absent: systolic murmur, diastolic murmur, rubs, gallop, clicks Extremities exam: Present: tenderness (Right great toe. Nailbed is lifted at proximal end. Minimal active bleeding. Limited range of motion due to pain. 2+ right dorsalis pedis pulse.) Neurological exam: Present: alert, oriented X3, CN II-XII intact Skin exam: Present: warm, dry, intact, normal color. Absent: rash Course Vital Signs 08/14/24 08/14/24 17:02 18:40 Temperature 97.8 F 98.0 F Pulse Rate 96 96 Respiratory 18 16 Rate Blood Pressure 141/77 113/73 O2 Sat by Pulse 99 98 Oximetry Medical Decision Making - Medical Decision Making I performed the quick note portion of this chart. Electronically signed by Sharri Fletcher PA-C Was pt. sent in by a medical professional or institution (, SARAHY, BRANCH BILLING PAYROLL CLERK, urgent care, hospital, or long-term...) When possible be specific @ -No Did you speak to anyone other than the patient for history (EMS, parent, family, police, friend...)? What history was obtained from this source @ -No Did you review nursing and triage notes (agree or disagree)? Why? @ -I reviewed and agree with nursing and triage notes Were old charts reviewed (outside hosp., previous admission, EMS record, old EKG, old radiological studies, urgent care reports/EKG's, long-term records)? Report findings @ -No old charts were reviewed Differential Diagnosis (chest pain, altered mental status, abdominal pain women, abdominal pain men, vaginal bleeding, weakness, fever, dyspnea, syncope, headache, dizziness, GI bleed, back pain, seizure, CVA, palpatations, mental health, musculoskeletal)? @ -Differential Musculoskeletal: Muscular strain, contusion, ligament sprain, fracture, arthritis, septic arthritis, bursitis, cellulitis, muscle spasm, nerve compression, DVT, arterial occlusion, herpes zoster, electrolyte abnormality, tumor.... This is not meant to be in all inclusive list EKG interpreted by me (3pts min.). @ -None done X-rays interpreted by me (1pt min.). @ -Right foot x-ray interpreted me showing a comminuted tuft fracture of right great toe. CT interpreted by me (1pt min.). @ -None done U/S interpreted by me (1pt. min.). @ -None done What testing was considered but not performed or refused? (CT, X-rays, U/S, labs)? Why? @ -None What meds were considered but not given or refused? Why? @ -None Did you discuss the management of the patient with other professionals (professionals i.e. SARAHY Kelsey, BRANCH BILLING PAYROLL CLERK, lab, RT, psych nurse, social director, wrapper off, teacher, science and operations officer, case maker)? Give summary @ -No Was smoking cessation discussed for >3mins.? @ -No Was critical care preformed (if so, how long)? @ -No Were there social determinants of health that impacted care today? How? (Homelessness, low income, unemployed, alcoholism, drug addiction, transportation, low edu. Level, literacy, decrease access to med. care, shelter, rehab)? @ -No Was there de-escalation of care discussed even if they declined (Discuss DNR or withdrawal of care, Hospice)? DNR status @ -No What co-morbidities impacted this encounter? (DM, HTN, Smoking, COPD, CAD, Cancer, CVA, ARF, Chemo, Hep., AIDS, mental health diagnosis, sleep apnea, morbid obesity)? @ -None Was patient admitted / discharged? Hospital course, mention meds given and route, prescriptions, significant lab abnormalities, going to OR and other pertinent info. @ -Discharge. 69-year-old female presented to the ER with a chief complaint of right foot injury. History and physical exam completed. Vitals within normal limits. Exam remarkable for tenderness to right great toe. Nailbed is lifted at proximal end. Minimal active bleeding. X-rays show any comminuted tuft fracture of the right great toe. Due to concern of an open fracture patient received IM Ancef and tetanus vaccination. Patient will be started on Keflex for infection prophylaxis. Wound wrapped with Vaseline covered gauze and gauze. Orthopedic shoe given. Symptomatic control in the ER. Patient given Tylenol 3 starter pack for pain control outpatient. Advise close follow-up with podiatry patient states she follows with a anchor tacker regularly and will follow-up with them.. Strict return parameters discussed. Patient discharged in stable condition with follow-up to podiatry. Patient verbally expressed understanding agree with care plan. Case discussed with ED attending, Dr. Chu. Undiagnosed new problem with uncertain prognosis? @ -No Drug Therapy requiring intensive monitoring for toxicity (Heparin, Nitro, Insulin, Cardizem)? @ -No Were any procedures done? @ -No Diagnosis/symptom? @ -Open fracture Acute, or Chronic, or Acute on Chronic? @ -Acute Uncomplicated (without systemic symptoms) or Complicated (systemic symptoms)? @ -Uncomplicated Side effects of treatment? @ -No Exacerbation, Progression, or Severe Exacerbation? @ -No Poses a threat to life or bodily function? How? (Chest pain, [place], [place], pneumonia, PE, COPD, DKA, ARF, appy, cholecystitis, CVA, Diverticulitis, Homicidal, Suicidal, threat to staff... and all critical care pts) @ -Yes, open fracture can lead to sepsis. Sepsis can lead to endorgan dysfunction and . - Radiology Data Radiology results: report reviewed, image reviewed Disposition Clinical Impression: Fracture of toe, open Disposition: HOME SELF-CARE Condition: Stable Instructions (If sedation given, give patient instructions): Toe Fracture (ED) Additional Instructions: Complete full course of Keflex. You may take [id number] Tylenol and ibuprofen for symptom control. Follow-up with podiatry. Return to the ER for any new or worsening concerns. Prescriptions: Cephalexin [Keflex] 500 mg PO Q6HR 1 Days #40 cap Is patient prescribed a controlled substance at d/c from ED?: No Referrals: Gucci Horton MD [Primary Care Provider] - 1-2 days Time of Disposition: 18:19
[2024-08-14] MEDS: DIPH,PERTUS(ACELL)TETVAC-LF 0.5 ML VIAL IM ONE (17:27)
--- NOTE | 2024-08-14 17:54 | XR ---
EXAMINATION TYPE: XR foot complete RT DATE OF EXAM: 08/14/2024 COMPARISON: None HISTORY: Great toe injury TECHNIQUE: 3 view right foot FINDINGS: There is a fracture of the distal tuft of the great toe. This may be comminuted into the tu ft. No additional fractures are evident. Prior laminectomy is evident in the first metatarsal. Joint spac es are preserved. IMPRESSION: 1. Comminuted fracture of tuft right great toe [facility], , 08/14/2024 5:52 PM
[2024-08-14] MEDS: ceFAZolin 1,000 MG VIAL (IM USE) IM STA (18:21)
[2024-08-14] MEDS: ACET/COD 300 MG/30 MG STARTER PACK 6 TAB BTL PO STA (18:34)
[2024-08-14] MEDS: HYDROcodone/APAP 5-325MG 1 EACH TAB PO STA (18:34)
[2024-08-14 18:42] VITALS: BP 113/73; RESP 16; TEMP 98
== END 2024-08-14 18:44 | disposition home or self-care (01) ==
LOC: EC 17:01
CPT/HCPCS: 90471; 90715; 96372; 99283

== ENCOUNTER → 2025-01-31 | Outpatient (CLI) | payer MEDICARE ==
[2025-01-31 11:50] LABS: African American GFR (CKD) >90 (>60 ml/min/1.73 sqM); Blood Urea Nitrogen 14 mg/dL (7-17); Non-African American GFR(CKD) 81 (>60 ml/min/1.73 sqM)
--- NOTE | 2025-01-31 13:36 | CT ---
EXAMINATION TYPE: CT abdomen pelvis w con CT DLP: 1079 mGycm, Automated exposure control for dose reduction was used. DATE OF EXAM: 01/31/2025 12:25 PM COMPARISON: Renal ultrasound 10/07/2022 CLINICAL INDICATION:Female, 69 years old with history of R10.9 UNSPECIFIED ABDOMINAL PAIN; ABD PAIN TECHNIQUE: Standard CT of the abdomen and pelvis following the administration of 100 cc of Isovue 3 00 IV contrast material and oral contrast. Coronal and sagittal reformats were performed. FINDINGS: LOWER CHEST: The visualized lung bases are clear. Elevation of the right hemidiaphragm. ABDOMEN LIVER: Diffusely hypoattenuating parenchyma. GALLBLADDER AND BILE DUCTS: The gallbladder is surgically absent. No biliary ductal dilatation. PANCREAS: Unremarkable. SPLEEN: Unremarkable. ADRENAL GLANDS: Unremarkable. KIDNEYS AND URETERS: No evidence of hydronephrosis or renal calculus. The kidneys enhance symmetrical ly. Contrast is demonstrated within both collecting systems on the delayed phase. Bilateral renal sin us cysts. PELVIS BLADDER: Incompletely distended but grossly unremarkable. REPRODUCTIVE: The uterus is surgically absent. ABDOMEN & PELVIS STOMACH AND BOWEL: Small hiatal hernia. Periampullary duodenal diverticulum. Distal colonic diverticu losis without evidence for acute diverticulitis. No focal bowel wall thickening or surrounding inflam matory changes. Enteric contrast reaches the hepatic flexure. The appendix is not identified however there is no significant inflammatory changes within the right lower quadrant. No evidence of bowel ob struction. PERITONEUM: No evidence of pneumoperitoneum or free fluid. VASCULATURE: Mild atherosclerotic calcifications are present throughout the abdominal aorta and its b ranches. No evidence of aortic aneurysm. Pelvic phleboliths. MUSCULOSKELETAL: No acute osseous abnormalities. Schmorl's node involving the superior endplate of th e L2 vertebral body. LYMPH NODES: No evidence for lymphadenopathy. SOFT TISSUE/ABDOMINAL WALL: Unremarkable IMPRESSION: 1. No acute abdominal/pelvic process. 2. Colonic diverticulosis without evidence for acute diverticulitis. 3. Hepatic steatosis. [facility], , 01/31/2025 1:34 PM
== END | disposition home or self-care (01) ==
LOC: RADCTMAIN 10:35
PROVIDERS: ATTEND Family Medicine
DX: K76.0 Fatty (change of) liver, not elsewhere classified (principal); K57.30 Diverticulosis of large intestine without perforation or abscess without bleeding; K44.9 Diaphragmatic hernia without obstruction or gangrene
CPT/HCPCS: 82565; 84520; 74177; 36415; Q9967

== ENCOUNTER → 2025-05-26 | Outpatient (CLI) | payer MEDICARE ==
--- NOTE | 2025-05-26 09:41 | USB ---
Reason for Exam: Clinical finding. Patient History: Menarche at age 14. First Full-Term at age 18. Hysterectomy at age 36. Postmenopausal. Patient has history of breast feeding. Estrogen for 7 years from age 36 until age 51. 10/2006, Excisional Biopsy on the Left side. 06/14/2017, Lumpectomy on the Left side. 05/11/2017, High risk Core Biopsy on the left side. 1999, Bilateral Implants. Maternal cousin had breast cancer. Risk Values: Carola 5 year model risk: 1.7%. NCI Lifetime model risk: 5.0%. Prior Study Comparison: 06/01/2020 Bilateral Screening Mammogram, [facility]. 09/21/2021 Bilateral Screening Mammogram, [facility]. 05/18/2023 Bilateral MG 3D screen mammo imp/cad., [facility]. Findings: The whole breast of both breasts, the axilla of both breasts and the retroareolar of both breasts were scanned. Bilateral whole breast ultrasound is performed including scanning of the subareolar region and axilla. Right breast implant is demonstrated. No solid or cystic lesion or axillary adenopathy. Left breast implant shows marked fold redundancy compatible with ruptured implant. Trace fluid is noted inserted areas adjacent to the implant. Otherwise, no solid or cystic lesion or axillary adenopathy. Overall Assessment: Incomplete: need additional imaging evaluation, BI-RAD 0 Management: Diagnostic Mammogram of both breasts. As the patient is overdue for her annual exam. Also, recommend referral to the patient's breast surgeon to manage the left-sided ruptured saline implant. Results were given to the patient verbally at the time of exam. [facility], , 05/26/2025 9:37 AM. Electronically signed and approved by: Alana Mcdonald M.D. Radiologist
== END | disposition home or self-care (01) ==
LOC: RADUSWWP 07:47
PROVIDERS: ATTEND Family Medicine
DX: T85.43XA Leakage of breast prosthesis and implant, initial encounter (principal); Z78.0 Asymptomatic menopausal state; Z80.3 Family history of malignant neoplasm of breast

== ENCOUNTER → 2025-06-27 | Outpatient (CLI) | payer MEDICARE ==
[2025-06-27 15:24] LABS: Basophils # (A) 0.03 X 10*3/uL (0.00-0.10); Basophils % (A) 0.3 %; Eosinophils # (A) 0.15 X 10*3/uL (0.04-0.35); Eosinophils % (A) 1.7 %; HCT 42.6 % (37.2-46.3); HGB 13.7 g/dL (12.0-15.0); Immature Grans, Automated 0.20 %; Lymphocytes # (A) 2.07 X 10*3/uL (0.90-5.00); Lymphocytes % (A) 24.0 %; MCH 30.3 pg (27.0-32.0); MCHC 32.2 g/dL (32.0-37.0); MCV 94.2 FL (80.0-97.0); Monocytes # (A) 1.02 X 10*3/uL (0.20-1.00); Monocytes % (A) 11.8 %; NRBC Per 100 WBC 0 X 10*3/uL (0.00-0.01); Neutrophils # (A) 5.35 X 10*3/uL (1.80-7.70); Neutrophils % (A) 62.0 %; Platelet Count 225 X 10*3/uL (140-440); RBC 4.52 X 10*6/uL (4.10-5.20); RDW 13.4 % (11.5-14.5); WBC 8.64 X 10*3/uL (4.50-10.00)
[2025-06-27 15:44] LABS: ALT 27 U/L (8-44); AST 23 U/L (13-35); Albumin 4.7 g/dL (3.8-4.9); Albumin/Globulin Ratio 1.96 Ratio (1.60-3.17); Alkaline Phosphatase 74 U/L (41-126); Anion Gap 11.40 mmol/L (4.00-12.00); BUN/Creat Ratio 20.29 Ratio (12.00-20.00); Blood Urea Nitrogen 14.2 mg/dL (9.0-27.0); Calcium 9.5 mg/dL (8.7-10.3); Carbon Dioxide 24.6 mmol/L (21.6-31.8); Chloride 104 mmol/L (96-109); Cholesterol 141.00 mg/dL (0.00-200.00); Globulin 2.4 g/dL (1.6-3.3); Glucose 105 mg/dL (70-110); HDL Cholesterol 55.00 mg/dL (40.00-60.00); LDL Cholesterol,Calculated 65.0 mg/dL (0.0-131.0); Potassium 4.9 mmol/L (3.5-5.5); Sodium 140 mmol/L (135-145); Total Protein 7.1 g/dL (6.2-8.2); Triglycerides 105.00 mg/dL (0.00-149.00); VLDL Calculation 21.00 mg/dL (5.00-40.00)
== END | disposition home or self-care (01) ==
LOC: LABWHC1 09:06
PROVIDERS: ATTEND Nurse Practitioner Family
DX: E78.5 Hyperlipidemia, unspecified (principal); R73.01 Impaired fasting glucose
CPT/HCPCS: 36415; 80053; 80061; 83036; 85025